=== PATIENT | male | born 1955 | race Two or more races ===

== ENCOUNTER 2021-02-09 10:44 | Outpatient (REF) | payer MEDICARE, SELFPAY ==
[2021-02-09 10:49] LABS: MANUAL DIFF FLAG NO
[2021-02-09 11:16] LABS: Basophils Percent Auto 0.5 % (0-2); Eosinophils Absolute Auto 0.2 X10*3/uL (0.0-0.4); Hematocrit 48.7 % (42-52); Hemoglobin 15.5 g/dl (14.0-18.0); Imm Gran Abs Auto 0.01 X10*3/uL (0.00-0.03); Imm Gran Pct Auto 0.2 % (0.0-0.4); Lymphocytes Absolute Auto 1.8 X10*3/uL (1.2-4.9); Lymphocytes Percent Auto 27.5 % (20-40); Mean Corpuscular HGB Conc 31.8 g/dl (31.0-36.0); Mean Corpuscular Hemoglobin 28.1 pg (27.0-33.0); Mean Corpuscular Volume 88.4 fL (80-98); Mean Platelet Volume 11.6 fL (9.4-12.4); Monocytes Absolute Auto 0.7 X10*3/uL (0.1-1.2); Monocytes Percent Auto 10.1 % (2-11); Neutrophils Absolute Auto 3.8 X10*3/uL (2.0-8.3); Neutrophils Percent Auto 58.7 % (45-73); Platelet Count 195 X10*3/uL (160-400); Red Blood Count 5.51 X10*6/uL (4.60-5.80); White Blood Count 6.4 X10*3/uL (4.8-10.8)
[2021-02-09 11:20] LABS: Glucose Urine UA NEG (NEG); Leukocyte Esterase Urine NEG (NEG); Specific Gravity - Urine 1.025 (1.005-1.025); Urine Blood NEG (NEG); Urine Ketones 5 MG/DL (NEG); Urine Protein TRACE MG/DL (NEG-TRACE)
[2021-02-09 11:21] LABS: Appearance Urine HAZY; Color Urine ORANGE
[2021-02-09 11:27] LABS: RBC Urine 0 /HPF (0); WBC Urine 0 /HPF (0-4)
[2021-02-09 11:28] LABS: Mucus Urine 3+ /LPF; Squamous Epithelial Cell Urine 1+ /LPF
[2021-02-09 12:42] LABS: Alanine Aminotransferase 22 U/L (0-40); Albumin Level 4.3 g/dL (3.5-5.0); Alkaline Phosphatase 56 U/L (39-117); Anion Gap 11 (12-20); Aspartate Amino Transferase 21 U/L (5-37); Bilirubin Total 0.9 mg/dL (0.0-1.0); Blood Urea Nitrogen 20 mg/dL (9-16); Calcium 9.1 mg/dL (8.4-10.2); Carbon Dioxide 29 mmol/L (22-29); Chloride 105 mmol/L (96-108); Cholesterol 162 mg/dL; Estimated Glomerular Filt Rate > 60; Glucose Fasting 93 mg/dL (60-99); HDL Cholesterol 40 mg/dL; LDL Cholesterol Calculated 108 mg/dl; Potassium 3.8 mmol/L (3.3-5.1); Sodium 141 mmol/L (135-145); Total Protein 6.8 g/dL (6.5-8.0); Triglycerides 70 mg/dL
[2021-02-09 12:49] LABS: PSA,Total (Free>4and<10) 0.41 ng/mL (0.00-4.00)
== END 2021-02-09 10:45 | disposition home or self-care (01) ==
LOC: HO.LNP 10:44
PROVIDERS: PCP Internal Medicine; Visit Provider Internal Medicine
DX: Z00.00 Encounter for general adult medical examination without abnormal findings (principal); Z12.5 Encounter for screening for malignant neoplasm of prostate
CPT/HCPCS: 80053; 80061; 81003; 84153; 85025

== ENCOUNTER 2022-01-21 10:49 | Outpatient (REF) | payer MEDICARE, SELFPAY ==
[2022-01-21 10:51] LABS: MANUAL DIFF FLAG NO
[2022-01-21 11:05] LABS: Basophils Absolute Auto 0.1 X10*3/uL (0.0-0.2); Basophils Percent Auto 0.8 % (0-2); Eosinophils Absolute Auto 0.2 X10*3/uL (0.0-0.4); Eosinophils Percent Auto 3.6 % (0-4); Hematocrit 49.5 % (42.0-52.0); Hemoglobin 16.2 g/dl (14.0-18.0); Imm Gran Abs Auto 0.02 X10*3/uL (0.00-0.03); Imm Gran Pct Auto 0.3 % (0.0-0.4); Lymphocytes Percent Auto 30.8 % (20-40); Mean Corpuscular HGB Conc 32.7 g/dl (31.0-36.0); Mean Corpuscular Hemoglobin 27.9 pg (27.0-33.0); Mean Corpuscular Volume 85.3 fL (80.0-98.0); Mean Platelet Volume 11.2 fL (9.4-12.4); Monocytes Absolute Auto 0.6 X10*3/uL (0.1-1.2); Monocytes Percent Auto 8.3 % (2-11); Neutrophils Absolute Auto 3.7 x10*3/uL (2.0-8.3); Neutrophils Percent Auto 56.2 % (45-73); Platelet Count 200 X10*3/uL (160-400); White Blood Count 6.6 X10*3/uL (4.8-10.8)
[2022-01-21 11:14] LABS: Alanine Aminotransferase 31 U/L (0-40); Albumin Level 4.2 g/dL (3.5-5.0); Alkaline Phosphatase 57 U/L (39-117); Anion Gap 13 (12-20); Aspartate Amino Transferase 29 U/L (5-37); Bilirubin Total 0.8 mg/dL (0.0-1.0); Blood Urea Nitrogen 16 mg/dL (9-16); Calcium 9.4 mg/dL (8.4-10.2); Carbon Dioxide 26 mmol/L (22-29); Chloride 105 mmol/L (96-108); Cholesterol 147 mg/dL; Estimated Glomerular Filt Rate > 60; Glucose Fasting 101 mg/dL (60-99); HDL Cholesterol 36 mg/dL; LDL Cholesterol Calculated 100 mg/dl; Potassium 3.7 mmol/L (3.3-5.1); Sodium 140 mmol/L (135-145); Triglycerides 57 mg/dL
[2022-01-21 11:31] LABS: Appearance Urine CLEAR; Color Urine YELLOW; Glucose Urine UA NEG (NEG); Leukocyte Esterase Urine NEG (NEG); Nitrite Urine NEG (NEG); Specific Gravity - Urine 1.015 (1.005-1.025); Urine Blood NEG (NEG); Urine Ketones NEG (NEG); Urine Protein NEG (NEG-TRACE)
[2022-01-21 11:38] LABS: PSA,Total (Free>4and<10) 0.39 ng/mL (0.00-4.00)
== END 2022-01-21 10:50 | disposition home or self-care (01) ==
LOC: HO.LNP 10:49
PROVIDERS: Visit Provider Internal Medicine
DX: Z00.00 Encounter for general adult medical examination without abnormal findings (principal); Z12.5 Encounter for screening for malignant neoplasm of prostate
CPT/HCPCS: 80053; 80061; 81003; 84153; 85025

== ENCOUNTER 2023-01-23 10:59 | Outpatient (REF) | payer MEDICARE, SELFPAY ==
[2023-01-23 11:02] LABS: MANUAL DIFF FLAG NO
[2023-01-23 11:13] LABS: Basophils Percent Auto 0.5 % (0-2); Eosinophils Absolute Auto 0.3 X10*3/uL (0.0-0.4); Hematocrit 49.3 % (42.0-52.0); Hemoglobin 15.9 g/dl (14.0-18.0); Imm Gran Abs Auto 0.02 X10*3/uL (0.00-0.03); Imm Gran Pct Auto 0.3 % (0.0-0.4); Lymphocytes Absolute Auto 2.1 X10*3/uL (1.2-4.9); Lymphocytes Percent Auto 27.7 % (20-40); Mean Corpuscular HGB Conc 32.3 g/dl (31.0-36.0); Mean Corpuscular Hemoglobin 28.5 pg (27.0-33.0); Mean Corpuscular Volume 88.5 fL (80.0-98.0); Mean Platelet Volume 12.1 fL (9.4-12.4); Monocytes Absolute Auto 0.7 X10*3/uL (0.1-1.2); Monocytes Percent Auto 9.2 % (2-11); Neutrophils Absolute Auto 4.4 x10*3/uL (2.0-8.3); Neutrophils Percent Auto 58.3 % (45-73); Platelet Count 190 X10*3/uL (160-400); Red Blood Count 5.57 X10*6/uL (4.60-5.80); Red Cell Distribution Width 13.1 % (11.0-16.0); White Blood Count 7.6 X10*3/uL (4.8-10.8)
[2023-01-23 11:15] LABS: Appearance Urine Clear; Color Urine Dark Yellow; Glucose Urine UA Negative (Negative); Leukocyte Esterase Urine Trace (Negative); Nitrite Urine Negative (Negative); Specific Gravity - Urine 1.025 (1.005-1.025); UMIC TRIGGER UACC YES; Urine Blood Negative (Negative); Urine Ketones Trace mg/dL (Negative); Urine Protein Trace mg/dL (Neg-Trace)
[2023-01-23 11:18] LABS: Bacteria Urine None Seen (None Seen); RBC Urine 0-2 /HPF (0-2); Squamous Epithelial Cell Urine 0-2 /HPF (0-2); WBC Urine 0-5 /HPF (0-5)
[2023-01-23 11:28] LABS: Alanine Aminotransferase 24 U/L (0-40); Albumin Level 4.2 g/dL (3.5-5.0); Alkaline Phosphatase 55 U/L (39-117); Anion Gap 13 (12-20); Aspartate Amino Transferase 23 U/L (5-37); Bilirubin Total 0.8 mg/dL (0.0-1.0); Blood Urea Nitrogen 20 mg/dL (9-16); Carbon Dioxide 26 mmol/L (22-29); Chloride 105 mmol/L (96-108); Cholesterol 136 mg/dL; Estimated Glomerular Filt Rate > 60; Glucose Fasting 101 mg/dL (60-99); HDL Cholesterol 32 mg/dL; LDL Cholesterol Calculated 89 mg/dl; Potassium 3.6 mmol/L (3.3-5.1); Sodium 140 mmol/L (135-145); Total Protein 6.7 g/dL (6.5-8.0); Triglycerides 75 mg/dL
[2023-01-23 11:45] LABS: PSA,Total (Free>4and<10) 0.43 ng/mL (0.00-4.00)
== END 2023-01-23 11:00 | disposition home or self-care (01) ==
LOC: HO.LNP 10:59
PROVIDERS: PCP Internal Medicine; Visit Provider Internal Medicine
DX: Z00.00 Encounter for general adult medical examination without abnormal findings (principal); Z12.5 Encounter for screening for malignant neoplasm of prostate
CPT/HCPCS: 80053; 80061; 81001; 84153; 85025

== ENCOUNTER 2024-02-01 11:01 | Outpatient (REF) | payer MEDICARE, SELFPAY ==
[2024-02-01 11:04] LABS: MANUAL DIFF FLAG NO
[2024-02-01 11:11] LABS: Basophils Percent Auto 0.5 % (0-2); Eosinophils Absolute Auto 0.2 X10*3/uL (0.0-0.4); Eosinophils Percent Auto 3.8 % (0-4); Hematocrit 50.1 % (42.0-52.0); Hemoglobin 16.7 g/dl (14.0-18.0); Imm Gran Abs Auto 0.01 X10*3/uL (0.00-0.03); Imm Gran Pct Auto 0.2 % (0.0-0.4); Lymphocytes Percent Auto 31.2 % (20-40); Mean Corpuscular HGB Conc 33.3 g/dl (31.0-36.0); Mean Corpuscular Hemoglobin 29.2 pg (27.0-33.0); Mean Corpuscular Volume 87.6 fL (80.0-98.0); Mean Platelet Volume 11.4 fL (9.4-12.4); Monocytes Absolute Auto 0.6 X10*3/uL (0.1-1.2); Monocytes Percent Auto 10.1 % (2-11); Neutrophils Absolute Auto 3.4 x10*3/uL (2.0-8.3); Neutrophils Percent Auto 54.2 % (45-73); Platelet Count 180 X10*3/uL (160-400); Red Blood Count 5.72 X10*6/uL (4.60-5.80); Red Cell Distribution Width 13.1 % (11.0-16.0); White Blood Count 6.3 X10*3/uL (4.8-10.8)
[2024-02-01 11:23] LABS: Appearance Urine Clear; Color Urine Yellow; Glucose Urine UA Negative (Negative); Leukocyte Esterase Urine Negative (Negative); Nitrite Urine Negative (Negative); PH 8.5 (5.0-9.0); Specific Gravity - Urine 1.015 (1.005-1.025); Urine Blood Negative (Negative); Urine Ketones Negative (Negative); Urine Protein Negative (Neg-Trace)
[2024-02-01 11:26] LABS: Alanine Aminotransferase 28 U/L (0-40); Albumin Level 4.2 g/dL (3.5-5.0); Alkaline Phosphatase 51 U/L (39-117); Anion Gap 10 (12-20); Aspartate Amino Transferase 29 U/L (5-37); Bilirubin Total 0.7 mg/dL (0.0-1.0); Blood Urea Nitrogen 17 mg/dL (9-16); Calcium 9.2 mg/dL (8.4-10.2); Carbon Dioxide 30 mmol/L (22-29); Chloride 105 mmol/L (96-108); Cholesterol 146 mg/dL (<200); Estimated Glomerular Filt Rate > 60; Glucose Fasting 91 mg/dL (60-99); HDL Cholesterol 35 mg/dL (>40); LDL Cholesterol Calculated 98 mg/dL (<100); Potassium 3.8 mmol/L (3.3-5.1); Sodium 141 mmol/L (135-145); Total Protein 6.8 g/dL (6.5-8.0); Triglycerides 65 mg/dL (<150)
[2024-02-01 11:27] LABS: Bacteria Urine None Seen (None Seen); Hyaline Casts Urine 0-2 /LPF (0-2); RBC Urine 0-2 /HPF (0-2); Squamous Epithelial Cell Urine 0-2 /HPF (0-2); WBC Urine 0-5 /HPF (0-5)
[2024-02-01 11:47] LABS: PSA,Total (Free>4and<10) 0.46 ng/mL (0.00-4.00)
== END 2024-02-01 11:02 | disposition home or self-care (01) ==
LOC: HO.LNP 11:01
PROVIDERS: Visit Provider Internal Medicine
DX: Z00.00 Encounter for general adult medical examination without abnormal findings (principal); Z12.5 Encounter for screening for malignant neoplasm of prostate
CPT/HCPCS: 80053; 80061; 81001; 84153; 85025

== ENCOUNTER 2024-02-08 13:50 | Outpatient (REF) | payer MEDICARE, SELFPAY ==
[2024-02-08 14:41] LABS: Vitamin D 25-OH Total 37.9 ng/mL (>30)
== END 2024-02-08 13:51 | disposition home or self-care (01) ==
LOC: HO.LNP 13:50
PROVIDERS: Visit Provider Internal Medicine
DX: E55.9 Vitamin D deficiency, unspecified (principal)
CPT/HCPCS: 82306

== ENCOUNTER 2025-02-03 10:24 | Outpatient (REF) | payer MEDICARE, SELFPAY ==
[2025-02-03 10:28] LABS: MANUAL DIFF FLAG NO
[2025-02-03 10:34] LABS: Basophils Percent Auto 0.6 % (0-2); Eosinophils Absolute Auto 0.3 X10*3/uL (0.0-0.4); Eosinophils Percent Auto 3.9 % (0-4); Hemoglobin 16.7 g/dl (14.0-18.0); Imm Gran Abs Auto 0.02 X10*3/uL (0.00-0.03); Imm Gran Pct Auto 0.3 % (0.0-0.4); Lymphocytes Absolute Auto 2.4 X10*3/uL (1.2-4.9); Mean Corpuscular HGB Conc 33.4 g/dl (31.0-36.0); Mean Corpuscular Volume 86.8 fL (80.0-98.0); Mean Platelet Volume 11.1 fL (9.4-12.4); Monocytes Absolute Auto 0.6 X10*3/uL (0.1-1.2); Monocytes Percent Auto 9.2 % (2-11); Neutrophils Absolute Auto 3.6 x10*3/uL (2.0-8.3); Platelet Count 184 X10*3/uL (160-400); Red Blood Count 5.76 X10*6/uL (4.60-5.80); Red Cell Distribution Width 12.8 % (11.0-16.0)
[2025-02-03 10:56] LABS: Appearance Urine Clear; Color Urine Yellow; Glucose Urine UA Negative (Negative); Leukocyte Esterase Urine Negative (Negative); Nitrite Urine Negative (Negative); Specific Gravity - Urine 1.015 (1.005-1.025); Urine Blood Negative (Negative); Urine Ketones Negative (Negative); Urine Protein Negative (Neg-Trace)
[2025-02-03 11:01] LABS: Bacteria Urine None Seen (None Seen); Hyaline Casts Urine 0-2 /LPF (0-2); RBC Urine 0-2 /HPF (0-2); Squamous Epithelial Cell Urine 0-2 /HPF (0-2); WBC Urine 0-5 /HPF (0-5)
[2025-02-03 11:05] LABS: PSA,Total (Free>4and<10) 0.45 ng/mL (0.00-4.00)
[2025-02-03 11:19] LABS: Alanine Aminotransferase 30 U/L (0-40); Albumin Level 4.4 g/dL (3.5-5.0); Alkaline Phosphatase 47 U/L (39-117); Anion Gap 13 (12-20); Aspartate Amino Transferase 35 U/L (5-37); Bilirubin Total 0.7 mg/dL (0.0-1.0); Blood Urea Nitrogen 17 mg/dL (9-16); Calcium 9.1 mg/dL (8.4-10.2); Carbon Dioxide 27 mmol/L (22-29); Chloride 105 mmol/L (96-108); Cholesterol 141 mg/dL (<200); Estimated Glomerular Filt Rate > 60; Glucose Fasting 96 mg/dL (60-99); HDL Cholesterol 34 mg/dL (>40); LDL Cholesterol Calculated 94 mg/dL (<100); Potassium 3.6 mmol/L (3.3-5.1); Sodium 141 mmol/L (135-145); Total Protein 6.8 g/dL (6.5-8.0); Triglycerides 68 mg/dL (<150); Vitamin D 25-OH Total 61.5 ng/mL (>30)
--- OUTSIDE RECORDS SUMMARY | 2025-02-03 11:38 | XMS_ITS | Patient Health Record ---
Author Organization Dewayne Galvan MD Address [address] [place], [place] [phone] Care Team Providers Care Reading Tutor Name Role Phone Dewayne Galvan Primary Care Provider [phone] Allergies No Known Allergies Results Component Value Reference Range Notes Occult Blood, Stool, Guaiac Reviewed date:02/08/2024 01:22:56 PM Interpretation:Negative Performing Lab: Notes/Report: Negative Occult Blood, Stool, Guaiac Neg Vitamin D 25-OH Total Reviewed date:02/09/2024 12:23:16 PM Interpretation: Performing Lab:[facility], [address] [place] [address] Notes/Report: Vitamin D 25-OH Total 37.9 >30 [...] confirmed with another method such as LC-MS/MS. Complete Blood Count Auto Di ff (Not yet reviewed by provider) Interpretation: Performing Lab:[facility], [address] [place] [phone] Notes/Report: White Blood Count 7.0 4.8-10.8 X10*3/uL [...] NRBC Abs Auto 0.000 0.0-0.012 X10*3/uL Comprehensive [place]. Panel Fa st (Not yet reviewed by provider) Interpretation: Performing Lab:[facility], [address] [place] [phone] Notes/Report: Sodium 141 135-145 mmol/L Potassium 3.6 [...] Alkaline Phosphatase 47 39-117 U/L Lipid Panel (Not yet reviewe d by provider) Interpretation: Performing Lab:[address] [address] Notes/Report: Triglycerides 68 <150 mg/dL Desirable Triglyceride: [...] in patients with liver disease. PSA,Total (Free>4and<10) (No t yet reviewed by provider) Interpretation: Performing Lab:[address] [address] Notes/Report: PSA,Total (Free>4and<10) 0.45 0.00-4.00 ng/mL A [...] Microparticle Immunoassay (CMIA) Vitamin D 25-OH Total (Not y et reviewed by provider) Interpretation: Performing Lab:[address] [address] Notes/Report: Vitamin D 25-OH Total 61.5 >30 [...] as LC-MS/MS. UA ClnCatch+Micro w/rflx Cul t (Not yet reviewed by provider) Interpretation: Performing Lab:[address] [address] Notes/Report: [id number] Urine, Clean Catch Color Urine Yellow Appearance Urine Clear PH 7.0 5.0-9.0 Glucose Urine UA Negative Negative mg/dL Urine Blood Negative Negative Specific [place]ola - Urine 1.015 1.005-1.025 Urine Protein Negative Neg-Trace mg/dL Urine Ketones Negative Negative mg/dL Nitrite Urine Negative Negative Leukocyte Esterase Urine Negative Negative RBC Urine 0-2 0-2 /HPF WBC Urine 0-5 0-5 /HPF Squamous Epithelial Cell Urine 0-2 0-2 /HPF Bacteria Urine None Seen None Seen Hyaline Casts Urine 0-2 0-2 /LPF Reason For Referral No Information Medications Medication SIG (Take, Route, Frequency, Duration) Notes Start Date End Date Status Vitamin D 25 MCG (1000 UT) 1 tablet Orally Once a day for 30 day(s) Not-Taking Immunizations Vaccine Route Administration Date Status Comme nts SARS-COV-2 Moderna Unknown 10/17/2020 Administered SARS-COV-2 Moderna Unknown 11/14/2020 Administered Fluarix Quadrivalent Unknown 05/02/2019 Refused PPSV23 (Pnemovax) Unknown 05/06/2019 Refused Fluarix Quadrivalent Unknown 07/23/2020 Refused PPSV23 (Pnemovax) Unknown 01/27/2022 Refused Fluarix Quadrivalent Unknown 08/19/2022 Refused Social History Tobacco Use: Social History Observation [...] Problem Status W/U Status Risk Notes Problem 46808792 Vitamin D defici ency (E55.9) Active confirmed Problem 138853928 Bursitis of left shoulder (M75.52) Active confirmed Problem 350643713 Lumbar disc dise ase (M51.9) Active confirmed Problem 01870667 Dysthymia (F34.1) Active confirmed Problem 2009312878870 Bilateral tinnit us (H93.13) Active confirmed Problem 91400901 Neurofibromatosi s (Q85.00) Active confirmed Vital Signs Blood pressure diastolic 70 mm Hg 02/08/2024 warner ght is down 3 pounds since 02-06-23 Height 66.5 in 02/08/2024 weight is down 3 pounds since 02-06-23 Blood pressure systolic 112 mm Hg 02/08/2024 weig ht is down 3 pounds since 02-06-23 Weight 198 lbs 02/08/2024 weight is down 3 pounds since 02-06-23 BMI 31.48 kg/m2 02/08/2024 weight is down 3 pounds since 02-06-23 Encounters Encounter Location Date Provider Diagnosis Dewayne Galvan MD [address] [place], [place] [phone] 02/03/2025 Dewayne Galvan Blood tests for routine general physical examination Z00.00 and Vitamin D deficiency E55.9 Dewayne Galvan MD [address] [place], [place] [phone] 02/08/2024 Dewayne Galvan Bilateral tinnitus H93.13 ; Annual physical exam Z00.00 ; Vitamin D deficiency E55.9 ; Dysthymia F34.1 ; Colon cancer screening Z12.11 and Negative depression screening Z13.31 Assessments Encounter Date Diagnosis (ICD Code) Assessment Notes Treatment Notes Treatment Clinical Notes Section Notes 02/03/2025 Blood tests for routine general physical examination (ICD-10 - Z00.00) 02/08/2024 Bilateral tinnitus (ICD-10 - H93.13) will observe, nothing to do 02/08/2024 Annual physical exam (ICD-10 - Z00.00) labs reviewed and discussed with patient 02/03/2025 Vitamin D deficiency (ICD-10 - E55.9) 02/08/2024 Vitamin D deficiency (ICD-10 - E55.9) stable, will continue to monitor 02/08/2024 Dysthymia (ICD-10 - F34.1) doing well, will continue current regiment 02/08/2024 Colon cancer screening (ICD-10 - Z12.11) guaiac negative 02/08/2024 Negative depression screening (ICD-10 - Z13.31) negative screen Plan Of Treatment Pending Test Test Name Order Date Electrocardiogram (EKG) 05/02/2019 Complete Blood Count Auto Diff 5 Comprehensive [place]. Panel Fast 5 Lipid Panel 02/03/2025 PSA,Total (Free>4and<10) 02/03/2025 Vitamin D 25-OH Total 02/03/2025 UA ClnCatch+Micro w/rflx Cult 02/03/2025 Next Appt Details Provider Name:Dewayne kidd, 02/10/2025 09:30:00 AM, [address], [address], [place], [place], [phone], Insurance Providers Payer Name Payer Address Payer Phone Subscriber Number Group Number Insured Name Patient Relationship to Insured Coverage Start Date Coverage End Date [employer] [facility] [address] [facility] [place], [place] [phone] [id number] Bart Maldonado Self - patient is the insured Medical (General) History Medical History History ICD Code 09/23/[address] Harjeet mccarty 5 years tubular adenoma
== END 2025-02-03 10:25 | disposition home or self-care (01) ==
LOC: HO.LNP 10:24
PROVIDERS: Visit Provider Internal Medicine
DX: Z00.00 Encounter for general adult medical examination without abnormal findings (principal); E55.9 Vitamin D deficiency, unspecified
CPT/HCPCS: 80053; 80061; 81001; 82306; 84153; 85025

== ENCOUNTER 2025-06-16 08:10 | Day surgery (SDC) | payer MEDICARE, SELFPAY ==
--- OUTSIDE RECORDS SUMMARY | 2024-02-01 03:45 | XMS_ITS ---
Author Organization Dewayne Galvan MD Address [address] [place], [place] [phone] Care Team Providers Care Rehab Spec Name Role Phone Dewayne Galvan Primary Care Provider [phone] Results Component Value Reference Range Notes Complete Blood Count Auto Di ff Reviewed date:02/01/2024 05:21:57 PM Interpretation: Performing Lab:[facility], [address] [place] [phone] Notes/Report: White Blood Count 6.3 4.8-10.8 X10*3/uL [...] Microscopic Reviewed date:02/01/2024 05:14:04 PM Interpretation: Performing Lab:[facility], [address] [place] [phone] Notes/Report: Color Urine Yellow Appearance Urine Clear PH 8.5 5.0-9.0 Glucose Urine UA Negative Negative mg/dL Urine Blood Negative Negative Specific [place] - Urine 1.015 1.005-1.025 Urine Protein Negative Neg-Trace mg/dL Urine Ketones Negative Negative mg/dL Nitrite Urine Negative Negative Leukocyte Esterase Urine Negative Negative RBC Urine 0-2 0-2 /HPF WBC Urine 0-5 0-5 /HPF Squamous Epithelial Cell Urine 0-2 0-2 /HPF Bacteria Urine None Seen None Seen Hyaline Casts Urine 0-2 0-2 /LPF Comprehensive [place]. Panel Fa Reviewed date:02/01/2024 05:07:02 PM Interpretation: Performing Lab:[facility], [address] [place] [phone] Notes/Report: Sodium 141 135-145 mmol/L Potassium 3.8 3.3-5.1 mmol/L Chloride 105 96-108 mmol/L Carbon Dioxide 30 22-29 mmol/L Anion Gap 10 12-20 Blood Urea Nitrogen 17 9-16 mg/dL Creatinine 0.85 0.5-1.4 mg/dL Estimated Glomerular Filt Rate > 60 NOTE: For -Palauan individuals, multiply the result by 1.210. Chronic [...] Panel Reviewed date:02/01/2024 05:06:40 PM Interpretation: Performing Lab:[facility], [address] [place] [phone] Notes/Report: Triglycerides 65 <150 mg/dL Desirable Triglyceride: [...] (Free>4and<10) Reviewed date:02/01/2024 05:12:19 PM Interpretation: Performing Lab:[facility], [address] [place] [phone] Notes/Report: PSA,Total (Free>4and<10) 0.46 0.00-4.00 ng/mL A [...] Location Date Provider Diagnosis Dewayne Galvan MD [address] [place] [address] [place] [phone] 02/01/2024 Dewayne Galvan Blood tests for routine general physical examination Z00.00 Assessments Encounter Date Diagnosis (ICD Code) Assessment Notes Treatment Notes Treatment Clinical Notes Section Notes 02/01/2024 Blood tests for routine general physical examination (ICD-10 - Z00.00) Plan Of Treatment Next Appt Details Provider Name:Dewayne kidd, 02/10/2026 07:45:00 AM, [address] [place] [address], Suite [facility], [place], [place], [phone], Provider Name:Dewayne kidd, 02/17/2026 09:30:00 AM, [address] [place] [address], [place] [address], [place], [place], [phone], Progress Notes * ALCONGBart STEVENDOB: (69 yo M)Acc No.[id number]:02/01/2024 Progress Note Patient: Bart MONAHAN Provider: La Nena Galvan MD :1955 A ge:68 Y S ex:Male Date:02/01/2024 Address:[address] [place], [place] [phone] Subjective: * Chief Complaints: * 1 . [...] 0 02/01/2024 Generated for Kem gutierrez/Rob/eTransmitting on: 1 01:58 PM EDT
--- OUTSIDE RECORDS SUMMARY | 2024-02-08 05:30 | XMS_ITS ---
Author Organization Dewayne Galvan MD Address [address] [place], [place] [phone] Care Team Providers Care Mason Liner Name Role Phone Dewayne Galvan Primary Care Provider [phone] Allergies No Known Allergies Results Component Value Reference Range Notes Occult Blood, Stool, Guaiac Reviewed date:02/08/2024 01:22:56 PM Interpretation:Negative Performing Lab: Notes/Report: Negative Occult Blood, Stool, Guaiac Neg Vitamin D 25-OH Total Reviewed date:02/09/2024 12:23:16 PM Interpretation: Performing Lab:[facility], [address] [place] [phone] Notes/Report: Vitamin D 25-OH Total 37.9 >30 [...] Problem Status W/U Status Risk Notes Problem [id number] Bilateral tinnitus (H93.13) Active confirmed Problem [id number] Vitamin D deficiency (E55.9) Active confirmed Vital Signs Blood pressure systolic 112 mm Hg 02/08/20 24 Blood pressure diastolic 70 mm Hg 024 Height 66.5 in 02/08/2024 Weight 198 lbs 02/08/2024 BMI 31.48 kg/m2 02/08/2024 weight is down 3 pounds [facility] 02-06-23 Encounters Encounter Location Date Provider Diagnosis Dewayne Galvan MD [address] [facility] [address] [place], [place] [phone] 02/08/2024 Dewayne Galvan Bilateral tinnitus H93.13 ; [...] 07:45:00 AM, [address], [address], [place], [place], [phone], Provider Name:Dewayne Ortiz ier, 02/17/2026 09:30:00 AM, [address], [address], [place], [place], [phone], Progress Notes * Bart KCDOB: (68 yo M)Acc No.[id number]:02/08/2024 Progress Notes Patient: Britney Pam garciater Provider: La Nena Galvan MD :1955 A ge:68 Y S ex:Male Date:02/08/2024 Address:[address] [place], [place] [id number] Subjective: * Chief Complaints: * A NNUAL [...] mg/dL Urine Blood Negative Negative - Specific [place] - Urine 1.015 1.005-1.025 - Urine Protein Negative Neg-Trace - mg/dL Urine Ketones Negative Negative - mg/dL Nitrite Urine Negative Negative - Leukocyte Esterase Urine Negative Negative - WBC Urine 0-5 0-5 - /HPF Squamous Epithelial Cell Urine 0-2 0-2 - /HP F Bacteria Urine None Seen None Seen - Hyaline Casts Urine 0-2 0-2 - /LPF L ab:Comprehensive [place]. Panel Fast (Order Date - 02/01/2024) (Collection [...] screen.?? * Procedure Codes: 3 6415 VENIPUNCT, ROUTINE*38395 TEST FOR BLOOD, FECES * Preventive Medicine: Counseling: C are goal follow-up plan: C ounseling for abnormal BMI provided?Yes, A gisselle Normal BMI Follow-up G iving encouragement to exercise. * Follow Up: 1 Year * * Sign off status: Completed true * Provider: La Nena Galvan MD Date: 0 02/08/2024 Generated for Kem gutierrez/Rob/[place] on: 1 01:58 PM EDT History and Physical Notes * HPI (History [...] Score: 0 Interpretation and Intervention Depression Bernie dylan Findings: Negative Follow-Up for Depression: : review [...]
--- OUTSIDE RECORDS SUMMARY | 2025-02-03 03:15 | XMS_ITS ---
Author Organization Dewayne Galvan MD Address [address] [place], [place] [phone] Care Team Providers Care Cloth Piecer Name Role Phone Dewayne Galvan Primary Care Provider [phone] Results Component Value Reference Range Notes Complete Blood Count Auto Di ff Reviewed date:02/03/2025 12:36:45 PM Interpretation: Performing Lab:[facility], [address] [place] [phone] Notes/Report: White Blood Count 7.0 4.8-10.8 X10*3/uL [...] NRBC Abs Auto 0.000 0.0-0.012 X10*3/uL Comprehensive [place]. Panel Fa st Reviewed date:02/03/2025 12:37:46 PM Interpretation: Performing Lab:[facility], [address] [place] [phone] Notes/Report: Sodium 141 135-145 mmol/L Potassium 3.6 [...] Panel Reviewed date:02/03/2025 12:36:53 PM Interpretation: Performing Lab:[facility], [address] [place] [phone] Notes/Report: Triglycerides 68 <150 mg/dL Desirable Triglyceride: [...] (Free>4and<10) Reviewed date:02/03/2025 12:36:25 PM Interpretation: Performing Lab:[facility], [address] [place] [phone] Notes/Report: PSA,Total (Free>4and<10) 0.45 0.00-4.00 ng/mL A [...] Total Reviewed date:02/03/2025 12:37:20 PM Interpretation: Performing Lab:[facility], [address] [place] [phone] Notes/Report: Vitamin D 25-OH Total 61.5 >30 [...] t Reviewed date:02/04/2025 05:30:34 PM Interpretation: Performing Lab:[facility], [address] [place] [phone] Notes/Report: [id number] 0715 Urine, Clean Catch Color Urine Yellow Appearance Urine Clear PH 7.0 5.0-9.0 Glucose Urine UA Negative Negative mg/dL Urine Blood Negative Negative Specific [place] - Urine 1.015 1.005-1.025 Urine Protein Negative [...] Date Provider Diagnosis Dewayne Galvan MD [address] [place], [place] [phone] 02/03/2025 Dewayne Galvan Blood tests for routine general physical examination Z00.00 and Vitamin D deficiency E55.9 Assessments Encounter Date Diagnosis (ICD Code) Assessment Notes Treatment Notes Treatment Clinical Notes Section Notes 02/03/2025 Blood tests for routine general physical examination (ICD-10 - Z00.00) 02/03/2025 Vitamin D deficiency (ICD-10 - E55.9) Plan Of Treatment Next Appt Details Provider Name:Dewayne kidd, 02/10/2026 07:45:00 AM, [address], [address], [place], [place], [phone], Provider Name:Dewayne Ortiz ier, 02/17/2026 09:30:00 AM, [address], [address], [place], [place], [phone], Progress Notes * Bart KCDOB: 4 (69 yo M)Acc No.[id number]:02/03/2025 Progress Note Patient: Bart MONAHAN Provider: La Nena Galvan MD :1955 A ge:69 Y S ex:Male Date:02/03/2025 Address:[address] [place], [place] [phone] Subjective: * Chief Complaints: * 1 . Yearly fasting labs. * Medical History: Objective: * Vitals: Assessment: * Assessment: 1. B lood tests for routine general physical examination - Z00.00 (Primary) 2 .?Vitamin D deficiency - E55.9 Plan: * Treatment: 2. V itamin D deficiency L AB: Complete Blood Count Auto Diff (Collection Date & Time - 02/03/2025 07:15 AM) L AB: Comprehensive [place]. Panel Fast (Collection Date & Time - [...] MD Date: 0 02/03/2025 Generated for Kem gutierrez/Rob/eTransmitting on: 1 01:58 PM EDT
--- OUTSIDE RECORDS SUMMARY | 2025-02-10 05:30 | XMS_ITS ---
Author Organization Dewayne Galvan MD Address [address] [place], [place] [phone] Care Team Providers Care Temporary Data Entry Clerk Name Role Phone Dewayne Galvan Primary Care Provider [phone] Allergies No Known Allergies Results Component [...] W/U Status Risk Notes Problem Tubular adenoma (387474804) Tubular adenoma (D36.9) Active confirmed Vital Signs Blood pressure systolic 112 mm Hg 02/11/20 25 Blood pressure diastolic 80 mm Hg 025 Height 66.5 in 02/10/2025 Weight 203 lbs 02/10/2025 BMI 32.27 kg/m2 02/10/2025 weight is up 5 pounds since 02-08-24 Encounters Encounter Location Date Provider Diagnosis Dewayne Galvan MD [address] [place] [address] [place] [phone] 02/10/2025 Dewayne Galvan Vitamin D deficiency E55.9 [...] 07:45:00 AM, [address], [address], [place], [place], [phone], Provider Name:Dewayne Ortiz ier, 02/17/2026 09:30:00 AM, [address], [address], [place], [place], [phone], Progress Notes * Bart KCDOB: (69 yo M)Acc No.[id number]:02/10/2025 Progress Notes Patient: Bart MONAHAN Provider: La Nena Galvan MD :1955 A ge:69 Y S ex:Male Date:02/10/2025 Address:[address] [place], [place] [phone] Subjective: * Chief Complaints: * A nnual [...] Auto 0.000 0.0-0.012 - X10*3/uL L ab:Comprehensive [place]. Panel Fast (Order Date - 02/03/2025) (Collection [...] 02/10/2025 Generated for Kem gutierrez/Rob/eTleroysmitting on: 1 01:58 PM EDT History and [...]
[2025-06-12 14:05] VITALS: BMI 31.1
--- OUTSIDE RECORDS SUMMARY | 2025-06-13 13:58 | XMS_ITS | Patient Health Record ---
Author Organization Dewayne Galvan MD Address [address] [place], [place] [id number] Care Team Providers Care Pick Up Attendant Name Role Phone Dewayne Galvan Primary Care Provider Allergies No Known Allergies Results Component Value Reference Range Notes Complete Blood Count Auto Di ff Reviewed date:02/03/2025 12:36:45 PM Interpretation: Performing Lab:[facility], [address] [place] [phone] Notes/Report: White Blood Count 7.0 4.8-10.8 X10*3/uL [...] NRBC Abs Auto 0.000 0.0-0.012 X10*3/uL Comprehensive [place]. Panel Fa st Reviewed date:02/03/2025 12:37:46 PM Interpretation: Performing Lab:[facility], [address] [place] [phone] Notes/Report: Sodium 141 135-145 mmol/L Potassium 3.6 [...] Panel Reviewed date:02/03/2025 12:36:53 PM Interpretation: Performing Lab:[facility], [address] [place] [phone] Notes/Report: Triglycerides 68 <150 mg/dL Desirable Triglyceride: [...] (Free>4and<10) Reviewed date:02/03/2025 12:36:25 PM Interpretation: Performing Lab:[facility], [address] [place] [phone] Notes/Report: PSA,Total (Free>4and<10) 0.45 0.00-4.00 ng/mL A [...] Total Reviewed date:02/03/2025 12:37:20 PM Interpretation: Performing Lab:[facility], [address] [place] [phone] Notes/Report: Vitamin D 25-OH Total 61.5 >30 [...] t Reviewed date:02/04/2025 05:30:34 PM Interpretation: Performing Lab:[facility], [address] [place] [phone] Notes/Report: [id number] Urine, Clean Catch Color Urine Yellow Appearance Urine Clear PH 7.0 5.0-9.0 Glucose Urine UA Negative Negative mg/dL Urine Blood Negative Negative Specific [place] - Urine 1.015 1.005-1.025 Urine Protein Negative Neg-Trace mg/dL Urine Ketones Negative Negative mg/dL Nitrite Urine Negative Negative Leukocyte Esterase Urine Negative Negative RBC Urine 0-2 0-2 /HPF WBC Urine 0-5 0-5 /HPF Squamous Epithelial Cell Urine 0-2 0-2 /HPF Bacteria Urine None Seen None Seen Hyaline Casts Urine 0-2 0-2 /LPF Occult Blood, Stool, Guaiac Reviewed date:02/10/2025 10:19:41 [...] PM > was told still being reviewed, SharBetty 03/04/2025 10:44:10 AM >patient is aware of appt Referral Priority Routine Referral Appointment Date 03/05/2025 Medications Medication SIG (Take, Route, Frequency, Duration) [...] W/U Status Risk Notes Problem Tubular adenoma (609688257) Tubular adenoma (D36.9) Active confirmed Problem 73265049 Vitamin D defici ency (E55.9) Active confirmed Problem 903476127 Bursitis of left shoulder (M75.52) Active confirmed Problem 653521635 Lumbar disc dise ase (M51.9) Active confirmed Problem 09840032 Dysthymia (F34.1) Active confirmed Problem 0809711941225 Bilateral tinnit us (H93.13) Active confirmed Problem 02161334 Neurofibromatosi s (Q85.00) Active confirmed Vital Signs Blood pressure diastolic 80 mm Hg 02/10/2025 warner ght is up 5 pounds since 02-08-24 Height 66.5 in 02/10/2025 weight is up 5 pounds since 02-08-24 Blood pressure systolic 112 mm Hg 02/10/2025 weig ht is up 5 pounds since 02-08-24 Weight 203 lbs 02/10/2025 weight is up 5 pounds since 02-08-24 BMI 32.27 kg/m2 02/10/2025 weight is up 5 pounds since 02-08-24 Encounters Encounter Location Date Provider Diagnosis Dewayne Galvan MD [address] [place] [address] Drive [address] [place], [place] [phone] 02/03/2025 Dewayne Galvan Blood tests for routine general physical examination Z00.00 and Vitamin D deficiency E55.9 Dewayne Galvan MD [address] [place], [place] [phone] 02/10/2025 Dewayne Galvan Vitamin D deficiency E55.9 ; Annual physical exam Z00.00 ; Tubular adenoma D36.9 ; Rectal abnormality K62.9 ; Dysthymia F34.1 ; Colon cancer screening Z12.11 and Depression screening Z13.31 Assessments Encounter Date Diagnosis (ICD Code) Assessment Notes Treatment Notes Treatment Clinical Notes Section Notes 02/03/2025 Blood tests for routine general physical examination (ICD-10 - Z00.00) 02/10/2025 Vitamin D deficiency (ICD-10 - E55.9) decrease to 1000 units per day 02/10/2025 Annual physical exam (ICD-10 - Z00.00) labs reviewed and discussed with patent 02/03/2025 Vitamin D deficiency (ICD-10 - E55.9) 02/10/2025 Tubular adenoma (ICD-10 - D36.9) due [...] Test Name Order Date Electrocardiogram (EKG) 05/02/2019 Next Appt Details Provider Name:Dewayne kidd, 02/10/2026 07:45:00 AM, [address], [address], [place], [place], [phone], Provider Name:Dewayne kidd, 02/17/2026 09:30:00 AM, [address], [address], [place], [place], [phone], Insurance Providers Payer Name Payer Address Payer Phone Subscriber Number Group Number Insured Name Patient Relationship to Insured Coverage Start Date Coverage End Date [employer] [facility] [address] [place] [phone] [id number] Bart Maldonado Self - patient is the insured Medical (General) History Medical History History ICD Code 09/23/[address] Harjeet mccarty 5 years tubular adenoma
--- OUTSIDE RECORDS SUMMARY | 2025-06-13 13:58 | XMS_ITS | Patient Health Record ---
Author Organization [facility] Address [address] [place] [address] Care Team Providers Care Family Court Registrar Name Role Phone Dewayne Galvan MD Primary Care Provider Cecil Anderson Unavailable [phone] Allergies No Known Allergies Reason For Referral No Information Medications Medication SIG (Take, Route, Frequency, Duration) Notes Start Date End Date Status Aspirin 81 81 MG 1 tablet Orally Once a day; Duration: 30 day(s) 03/05/2025 Active Vitamin D 50 MCG (1999) 1 tablet Oral ly Once a day; Duration: 30 day(s) 03/05/2025 Active Immunizations Vaccine Route Administration Date Status Comme nts Influenza Unknown 03/05/2025 Refused Social History Tobacco Use: Social History Observation Description Date Details (start date - stop date) Never Smoker NA - NA Tobacco Use/Smoking Question Answer Notes Patient is a nonsmoker AUDIT-C (Standard) Question Answer Notes Did you have a drink contain ing alcohol in the past year? Yes How often did you have a dri nk containing alcohol in the past year? Daily or almost daily (4 points) How many drinks did you have on a typical day when you were drinking in the past year? 1 or 2 drinks (0 point) How often did you have six o r more drinks on one occasion in the past year? Never (0 point) Points 4 Interpretation Positive Section Notes: Nonsmoker; no sig. alcohol Nonsmoker; no sig. alcohol Problems Problem Type SNOMED Code ICD Code Onset Dates Problem Status W/U Status Risk Notes Problem Screening for malignant neoplasm of colon (635155423) Encounter for screening for malignant neoplasm of colon (Z12.11) Active confirmed Problem Long-term current use of antiplatelet drug (302932502653034) prison (current) use of aspirin (Z79.82) Active confirmed Problem Preprocedural examination (560249474297236) Preprocedural examination (Z01.818) Active confirmed Problem Family History of Cancer of Colon (Situation) (631647846) Family history of colon cancer (Z80.0) Active confirmed Problem Family history of malignant neoplasm of gastrointestinal tract (925963429) Family history of colon cancer in father (Z80.0) Active confirmed Problem History of adenomatous polyp of colon (189751559) History of adenomatous polyp of colon (Z86.0101) Active confirmed Vital Signs Temperature 97.5 degrees Fahrenheit 03/05/2025 Blood pressure diastolic 01 mm Hg 03/05/2025 Height 68 in 03/05/2025 Blood pressure systolic 001 mm Hg 03/05/2025 Weight 204.4 lbs 03/05/2025 BMI 31.08 kg/m2 03/05/2025 Procedures Procedure Date Ordered Date Performed Result Body Sit e COLONOSCOPY 03/05/2025 N/A Encounters Encounter Location Date Provider Diagnosis [facility] [address] [place] [address] 03/05/2025 Cecil Cosby History of adenomato us polyp of colon Z86.0101 ; Preprocedural examination Z01.818 ; Colon cancer screening Z12.11 ; Family history of colon cancer in father Z80.0 and prison (current) use of aspirin Z79.82 Assessments Encounter Date Diagnosis (ICD Code) Assessment Notes Treatment Notes Treatment Clinical Notes Section Notes 03/05/2025 Preprocedural examination (ICD-10 - Z01.818) Overall, Bart appears quite well. He is not having any new or worrisome GI complaints. I did not feel a definitive abnormality on his digital rectal exam today. He does have a somewhat tight anal sphincter which made the exam somewhat limited. Nonetheless, given his history of a tubular adenoma of the colon, his significant family history of his father having had colon cancer at a relatively young age, and Bart's last colonoscopy being over 5 years ago, I did advise him that he needs a follow-up colonoscopy for screening purposes regardless of the questionable rectal exam. We did review the rationale for that in regard to colon cancer prevention. Full consent has been obtained for this, including risk of bleeding and perforation. The procedure will be done with monitored anesthesia care. He was advised to stop aspirin a full week before the procedure. Bart was comfortable with this plan. Thank you again for allowing me to participate in Bart's care. I shall continue to keep you advised of his progress. 03/05/2025 History of adenomatous polyp of colon (ICD-10 - Z86.0101) Overall, Bart appears quite well. He is not having any new or worrisome GI complaints. I did not feel a definitive abnormality on his digital rectal exam today. He does have a somewhat tight anal sphincter which made the exam somewhat limited. Nonetheless, given his history of a tubular adenoma of the colon, his significant family history of his father having had colon cancer at a relatively young age, and Bart's last colonoscopy being over 5 years ago, I did advise him that he needs a follow-up colonoscopy for screening purposes regardless of the questionable rectal exam. We did review the rationale for that in regard to colon cancer prevention. Full consent has been obtained for this, including risk of bleeding and perforation. The procedure will be done with monitored anesthesia care. He was advised to stop aspirin a full week before the procedure. Bart was comfortable with this plan. Thank you again for allowing me to participate in Bart's care. I shall continue to keep you advised of his progress. 03/05/2025 Colon cancer screening (ICD-10 - Z12.11) Overall, Bart appears quite well. He is not having any new or worrisome GI complaints. I did not feel a definitive abnormality on his digital rectal exam today. He does have a somewhat tight anal sphincter which made the exam somewhat limited. Nonetheless, given his history of a tubular adenoma of the colon, his significant family history of his father having had colon cancer at a relatively young age, and Bart's last colonoscopy being over 5 years ago, I did advise him that he needs a follow-up colonoscopy for screening purposes regardless of the questionable rectal exam. We did review the rationale for that in regard to colon cancer prevention. Full consent has been obtained for this, including risk of bleeding and perforation. The procedure will be done with monitored anesthesia care. He was advised to stop aspirin a full week before the procedure. Bart was comfortable with this plan. Thank you again for allowing me to participate in Bart's care. I shall continue to keep you advised of his progress. 03/05/2025 Family history of colon cancer in father (ICD-10 - Z80.0) Overall, Bart appears quite well. He is not having any new or worrisome GI complaints. I did not feel a definitive abnormality on his digital rectal exam today. He does have a somewhat tight anal sphincter which made the exam somewhat limited. Nonetheless, given his history of a tubular adenoma of the colon, his significant family history of his father having had colon cancer at a relatively young age, and Bart's last colonoscopy being over 5 years ago, I did advise him that he needs a follow-up colonoscopy for screening purposes regardless of the questionable rectal exam. We did review the rationale for that in regard to colon cancer prevention. Full consent has been obtained for this, including risk of bleeding and perforation. The procedure will be done with monitored anesthesia care. He was advised to stop aspirin a full week before the procedure. Bart was comfortable with this plan. Thank you again for allowing me to participate in Bart's care. I shall continue to keep you advised of his progress. 03/05/2025 assistant terminal manager (current) use of aspirin (ICD-10 - Z79.82) Overall, Bart appears quite well. He is not having any new or worrisome GI complaints. I did not feel a definitive abnormality on his digital rectal exam today. He does have a somewhat tight anal sphincter which made the exam somewhat limited. Nonetheless, given his history of a tubular adenoma of the colon, his significant family history of his father having had colon cancer at a relatively young age, and Bart's last colonoscopy being over 5 years ago, I did advise him that he needs a follow-up colonoscopy for screening purposes regardless of the questionable rectal exam. We did review the rationale for that in regard to colon cancer prevention. Full consent has been obtained for this, including risk of bleeding and perforation. The procedure will be done with monitored anesthesia care. He was advised to stop aspirin a full week before the procedure. Bart was comfortable with this plan. Thank you again for allowing me to participate in Cynthias care. I shall continue to keep you advised of his progress. Plan Of Treatment Pending Test Test Name Order Date COLONOSCOPY 03/05/2025 Future Test Test Name Order Date COLONOSCOPY 07/16/2019 Next Appt Details Provider Name:Cecil Cosby , 06/16/2025 09:30:00 AM, [address] [place] [address] , [place], [place], [phone], Insurance Providers Payer Name Payer Address Payer Phone Subscriber Number Group Number Insured Name Patient Relationship to Insured Coverage Start Date Coverage End Date [facility] [address] [place] [phone] [id number] BART KC Self - patient is the insured 4 Medical (General) History Medical History History ICD Code Denies DE,DM,CVA,Lung disease,renal dise ase He had a neg. screening colo noscopy in October 2010 at [facility] by Dr. Ramirez Negative screening colonoscopy in 09/2019 except for a small tubular adenoma Surgical History Surgery Date(Month/Year) Cyst on lip removed as child Ingrown toenails as child
[2025-06-16 08:23] VITALS: BMI 30.2
[2025-06-16 08:28] VITALS: BP 139/80; PULSE 73; RESP 16; TEMP 36.5; O2SAT 95
[2025-06-16] MEDS: Lactated Ringers 1,000 ML 100 ML IVCONT (08:48)
--- NOTE | 2025-06-16 08:58 | HO.ANESPROP2 ---
Documented by User: Eda Abraham NP 06/13/25 14:21 HPI - Anesthesia Eval Consult details Narrative: 69yo M for Colonoscopy [facility] Past Medical History Medical History (Updated 06/12/25 @ 14:09 by Jie Moody RN) No pertinent past medical history Surgical History Surgical History (Updated 06/12/25 @ 14:08 by Jie Moody RN) Hx of excision of mass Hx of foot surgery H/O colonoscopy Social History Social History (Updated 06/12/25 @ 14:08 by Jie Moody RN) Patient Tobacco Use Status: Never used Tobacco Use of substances other than those prescribed or required for medical reasons: No Are you DNR?: No Advance Directives: No Advance Directives Information Provided: Yes Meds Allergies Allergy/AdvReac Type Severity Reaction Status Date / Time No Known Allergies Allergy Unverified 04/30/20 15:46 Home Medications ?Medication ?Instructions ?Recorded ?Confirmed ?Last Taken ?Type aspirin 81 mg tablet,delayed 81 mg PO DAILY 06/12/25 06/12/25 Unknown History release cholecalciferol (vitamin D3) 50 50 mcg PO DAILY 06/12/25 06/12/25 Unknown History mcg (2,000 unit) capsule (Vitamin D3) Exam Height,Weight and Vital Signs: Height 5 ft 8 in Weight 92.714 kg Assessment and Plan Assessment Anesthesia Assessment: Chart Reviewed Documented by User: Rima Stubbs DO 06/16/25 08:59 [facility] Past Medical History Medical History (Updated 06/12/25 @ 14:09 by Jie Moody RN) No pertinent past medical history Family History Family history of problems with anesthesia: No Surgical History Surgical History (Updated 06/12/25 @ 14:08 by Jie Moody RN) Hx of excision of mass Hx of foot surgery H/O colonoscopy History of Problems with Anesthesia: No Social History Social History (Updated 06/12/25 @ 14:08 by Jie Moody RN) Patient Tobacco Use Status: Never used Tobacco Use of substances other than those prescribed or required for medical reasons: No Are you DNR?: No Advance Directives: No Advance Directives Information Provided: Yes Meds Allergies Allergy/AdvReac Type Severity Reaction Status Date / Time No Known Allergies Allergy Unverified 04/30/20 15:46 Home Medications ?Medication ?Instructions ?Recorded ?Confirmed ?Last Taken ?Type aspirin 81 mg tablet,delayed 81 mg PO DAILY 06/12/25 06/12/25 Unknown History release cholecalciferol (vitamin D3) 50 50 mcg PO DAILY 06/12/25 06/12/25 Unknown History mcg (2,000 unit) capsule (Vitamin D3) Exam Exam Date and Time: 06/16/25 0858 Height,Weight and Vital Signs: Height 5 ft 8 in Weight 92.714 kg Vital Signs Temperature 97.7 F 06/16/25 08:28 Pulse Rate 73 06/16/25 08:28 Respiratory Rate 16 06/16/25 08:28 Blood Pressure 139/80 06/16/25 08:28 Pulse Oximetry 95 06/16/25 08:28 Oxygen Delivery Method Room Air 06/16/25 08:28 Temperature 97.7 F 06/16/25 08:28 Pulse Rate 73 06/16/25 08:28 Respiratory Rate 16 06/16/25 08:28 Blood Pressure 139/80 06/16/25 08:28 Pulse Oximetry 95 06/16/25 08:28 Oxygen Delivery Method Room Air 06/16/25 08:28 Airway Mallampati Class: III TM Dist: >3cm Neck ROM: Full Loose/Missing/Broken Teeth: No (patient denies any loose or broken teeth) Heart: S1S2 Lungs: CTAB Assessment and Plan Assessment Anesthesia Assessment: Anesthesia Plan Discussed and Chart Reviewed Final Anesthetic Review Family History of Problems with Anesthesia: No History of Problems with Anesthesia: No NPO: Yes ASA Class: I Final Preanesthetic Review: No Changes in Pt Med Stat, Meds/Allgs Chart Reviewed, Consent Obtained/Reviewed and Anes Risks/Benef Reviewed Patient Risk: Low Procedure Risk: Low Anesthetic Plan Anesthetic Plan: MAC: and Agree w/ Assess. and Plan Disposition: Standard PACU
[2025-06-16 10:28] VITALS: BP 92/57; PULSE 67; RESP 16; TEMP 36.4; O2SAT 95
--- NOTE | 2025-06-16 10:30 | P.BOP_ITS ---
Brief Operative Note Date of Service: 06/16/25 Pre-op diagnosis: Screening Post-op diagnosis: other (Diverticulosis) Procedure: Colonoscopy to the cecum and TI Surgeon: Cecil Cosby MD Anesthesia: MAC Was an Batter Depositor used for this Procedure?: No Estimated blood loss (mL): 0 Pathology: none sent Condition: stable Disposition: PACU
[2025-06-16 10:43] VITALS: BP 110/71; PULSE 76; RESP 16; TEMP 36.4; O2SAT 96
--- NOTE | 2025-06-16 11:12 | OP_ITS ---
DATE OF SERVICE: 06/16/2025 SURGEON: Cecil Cosby MD INDICATIONS: The patient presents for evaluation of colorectal cancer screening, family history of colon cancer, and personal history of tubular adenoma of the colon. PREOPERATIVE DIAGNOSIS: POSTOPERATIVE DIAGNOSIS: PROCEDURE PERFORMED: Colonoscopy to cecum and terminal ileum. ESTIMATED BLOOD LOSS: COMPLICATIONS: ANESTHESIA: Medication used, monitored anesthesia care. ASSISTANTS: SPECIMENS: POSTOPERATIVE DIAGNOSES: The patient presents for evaluation of colorectal cancer screening, family history of colon cancer, personal history of tubular adenoma of the colon, diverticulosis, and internal hemorrhoids. DESCRIPTION OF PROCEDURE: The digital rectal exam revealed a somewhat tight anal sphincter. There were no palpable lesions. The Olympus video pediatric colonoscope was entered into the rectum and advanced easily to the cecum. Once in the cecum, I did identify normal-appearing cecal pouch with appendiceal orifice and a normal-appearing ileocecal valve. The terminal ileum was cannulated and appeared normal. The scope was withdrawn back into the colon. The entire cecum including the appendiceal orifice was well visualized and appeared normal. The ileocecal valve appeared normal. The scope was slowly withdrawn assessing all mucosal surfaces carefully. Preparation was excellent. I did not visualize any sign of polyps, colitis, nor angiodysplasia. There was a mild amount of sigmoid diverticulosis. In the rectum, scope was retroflexed visualizing some internal hemorrhoids, but no other pathology. The rectal mucosa appeared normal. Scope was straightened out and withdrawn from the patient. He tolerated the procedure well and was returned to the recovery area in stable condition. IMPRESSION: 1. Diverticulosis. 2. Internal hemorrhoids. PLAN: Given his previous history and family history, I would recommend a repeat colonoscopy in 5 years for further screening. He will otherwise see me on a p.r.n. basis. MD JOSEPH Hart/EDMOND / [phone]
== END 2025-06-16 12:14 | disposition home or self-care (01) ==
PROVIDERS: PCP Internal Medicine; Visit Provider Internal Medicine
PROC: 0DJD8ZZ Inspection of Lower Intestinal Tract, Via Natural or Artificial Opening Endoscopic (ICD-10-PCS; CPT 45378; principal; 2025-06-16 09:30)
DX: Z12.11 Encounter for screening for malignant neoplasm of colon (principal); Z86.0101 Personal history of adenomatous and serrated colon polyps; Z80.0 Family history of malignant neoplasm of digestive organs; K57.30 Diverticulosis of large intestine without perforation or abscess without bleeding; K64.8 Other hemorrhoids; Z79.82 Long term (current) use of aspirin; Z79.899 Other long term (current) drug therapy
CPT/HCPCS: G0105; J2003; J2704

== ENCOUNTER 2025-07-02 08:46 | Outpatient (AMB) | payer MEDICARE, SELFPAY ==
--- OUTSIDE RECORDS SUMMARY | 2024-02-01 02:45 | XMS_ITS ---
Author Organization Dewayne Galvan MD Address [address] [place], [place] [id number] Care Team Providers Care Baggage Clerk Name Role Phone Dewayne Galvan Primary Care Provider Results Component Value Reference Range Notes Complete Blood Count Auto Di ff Reviewed date:02/01/2024 05:21:57 PM Interpretation: Performing Lab:[facility], [address] [place] [phone] Notes/Report: White Blood Count 6.3 4.8-10.8 X10*3/uL Red Blood Count 5.72 4.60-5.80 X10*6/uL Hemoglobin 16.7 14.0-18.0 g/dl Hematocrit 50.1 42.0-52.0 % Mean Corpuscular Volume 87.6 80.0-98.0 fL Mean Corpuscular Hemoglobin 29.2 27.0-33.0 pg Mean Corpuscular HGB Conc 33.3 31.0-36.0 g/dl Red Cell Distribution Width 13.1 11.0-16.0 % Platelet Count 180 160-400 X10*3/uL Mean Platelet Volume 11.4 9.4-12.4 fL Neutrophils Percent Auto 54.2 45-73 % Imm Gran Pct Auto 0.2 0.0-0.4 % Lymphocytes Percent Auto 31.2 20-40 % Monocytes Percent Auto 10.1 2-11 % Eosinophils Percent Auto 3.8 0-4 % Basophils Percent Auto 0.5 0-2 % NRBC Pct Auto 0.0 0.0-0.2 /100WBC Neutrophils Absolute Auto 3.4 2.0-8.3 x10*3/u L Imm Gran Abs Auto 0.01 0.00-0.03 X10*3/uL Lymphocytes Absolute Auto 2.0 1.2-4.9 X10*3/u L Monocytes Absolute Auto 0.6 0.1-1.2 X10*3/uL Eosinophils Absolute Auto 0.2 0.0-0.4 X10*3/u L Basophils Absolute Auto 0.0 0.0-0.2 X10*3/uL NRBC Abs Auto 0.000 0.0-0.012 X10*3/uL Urinalysis and Microscopic Reviewed date:02/01/2024 05:14:04 PM Interpretation: Performing Lab:[facility], [address] [place] [phone] Notes/Report: Color Urine Yellow Appearance Urine Clear PH 8.5 5.0-9.0 Glucose Urine UA Negative Negative mg/dL Urine Blood Negative Negative Specific [place] - Urine 1.015 1.005-1.025 Urine Protein Negative Neg-Trace mg/dL Urine Ketones Negative Negative mg/dL Nitrite Urine Negative Negative Leukocyte Esterase Urine Negative Negative RBC Urine 0-2 0-2 /HPF WBC Urine 0-5 0-5 /HPF Squamous Epithelial Cell Urine 0-2 0-2 /HPF Bacteria Urine None Seen None Seen Hyaline Casts Urine 0-2 0-2 /LPF Comprehensive [place]. Panel Fa Reviewed date:02/01/2024 05:07:02 PM Interpretation: Performing Lab:[facility], [address] [place] [phone] Notes/Report: Sodium 141 135-145 mmol/L Potassium 3.8 3.3-5.1 mmol/L Chloride 105 96-108 mmol/L Carbon Dioxide 30 22-29 mmol/L Anion Gap 10 12-20 Blood Urea Nitrogen 17 9-16 mg/dL Creatinine 0.85 0.5-1.4 mg/dL Estimated Glomerular Filt Rate > 60 NOTE: For -Romanian individuals, multiply the result by 1.210. Chronic Kidney Disease: Estimated GFR < 60 mL/min/1.73m2 Severe Kidney Disease: Estimated GFR < 15 mL/min/1.73m2 Glucose Fasting 91 60-99 mg/dL Calcium 9.2 8.4-10.2 mg/dL Bilirubin Total 0.7 0.0-1.0 mg/dL Aspartate Amino Transferase 29 5-37 U/L Alanine Aminotransferase 28 0-40 U/L Total Protein 6.8 6.5-8.0 g/dL Albumin Level 4.2 3.5-5.0 g/dL Alkaline Phosphatase 51 39-117 U/L Lipid Panel Reviewed date:02/01/2024 05:06:40 PM Interpretation: Performing Lab:[facility], [address] [place] [phone] Notes/Report: Triglycerides 65 <150 mg/dL Desirable Triglyceride: less than 150 mg/dL Borderline High Triglyceride 150-199 mg/dL High Triglyceride: 200-499 mg/dL Very High Triglyceride: greater than or equal to 5OO mg/dL Cholesterol 146 <200 mg/dL Desirable Cholesterol: less than 200 mg/dL Borderline High Cholesterol: 200-239 mg/dL High Cholesterol: greater than 239 mg/dL LDL Cholesterol Calculated 98 <100 mg/dL Desirable LDL: less than 100 mg/dL Near Optimal/Above Optimal LDL: 110-129 mg/dL Borderline High LDL: 130-159 mg/dL High LDL: 160-189 mg/dL Very High LDL: greater than or equal to 190 mg/dL HDL Cholesterol 35 >40 mg/dL Desirable HDL: greater than 40 mg/dL Note: This HDL assay may give artificially low results in patients with liver disease. PSA,Total (Free>4and<10) Reviewed date:02/01/2024 05:12:19 PM Interpretation: Performing Lab:[facility], [address] [place] [phone] Notes/Report: PSA,Total (Free>4and<10) 0.46 0.00-4.00 ng/mL A Free PSA was not performed: The percentage of Free PSA can be used to enhance the differentiation of prostate cancer from benign prostatic disease in subjects whose PSA levels are between 4.0 and 10.0 ng/mL. For subjects whose PSA levels are below 4.0 or above 10.0 ng/mL, the risk of prostate cancer is determined on the basis of the PSA alone. Therefore the % Free PSA is recommended only for those subjects whose PSA levels are between 4.0 and 10.0 ng/mL. PSA methodology: Walter Alinity i Chemiluminescent Microparticle Immunoassay (CMIA) REASON FOR VISIT FASTING LABS Encounters Encounter Location Date Provider Diagnosis Dewayne Galvan MD [address] [place] [address] [place] [phone] 02/01/2024 Dewayne Galvan Blood tests for routine general physical examination Z00.00 Assessments Encounter Date Diagnosis (ICD Code) Assessment Notes Treatment Notes Treatment Clinical Notes Section Notes 02/01/2024 Blood tests for routine general physical examination (ICD-10 - Z00.00) Plan Of Treatment Next Appt Details Provider Name:Dewayne kidd, 02/10/2026 07:45:00 AM, [address] [place] [address], Suite [facility], [place], [place], [phone], Provider Name:Dewayne kidd, 02/17/2026 09:30:00 AM, [address] [place] [address], [place] [address], [place], [place], [phone], Progress Notes * ALCONGBart STEVENDOB: (69 yo M)Acc No.[id number]:02/01/2024 Progress Note Patient: Bart MONAHAN Provider: La Nena Galvan MD :1955 A ge:68 Y S ex:Male Date:02/01/2024 Address:[address] [place], [place] [phone] Subjective: * Chief Complaints: * 1 . FASTING LABS. * Medical History: Objective: * Vitals: Assessment: * Assessment: 1. B lood tests for routine general physical examination - Z00.00 (Primary) Plan: * Treatment: * Procedure Codes: 3 6415 VENIPUNCT, ROUTINE* * * The named appointment provid er may or may not be the originator of this progress note, and it is not deemed complete until electronically signed by the appointment provider. Sign off status: Pending * Provider: La Nena Galvan MD Date: 0 02/01/2024 Generated for Kem gutierrez/Rob/eTransmitting on: 09/01/2024 04:26 PM EST
--- OUTSIDE RECORDS SUMMARY | 2024-02-08 04:30 | XMS_ITS ---
Author Organization Dewayne Galvan MD Address [address] [place], [place] [id number] Care Team Providers Care Respiratory Care Program Director Name Role Phone Dewayne Galvan Primary Care Provider [phone] Allergies No Known Allergies Results Component Value Reference Range Notes Occult Blood, Stool, Guaiac Reviewed date:02/08/2024 01:22:56 PM Interpretation:Negative Performing Lab: Notes/Report: Negative Occult Blood, Stool, Guaiac Neg Vitamin D 25-OH Total Reviewed date:02/09/2024 12:23:16 PM Interpretation: Performing Lab:[facility], [address] [place] [id number] Notes/Report: Vitamin D 25-OH Total 37.9 >30 ng/mL Health Based Reference Values* < 20 ng/mL Deficient 20-30 ng/mL Insufficient > 30 ng/mL Sufficient *Bryce CHAPMAN. N Engl J Med. 2007;357:266-280 Care must be taken in interpreting Vitamin D results from different laboratories and methodologies. Published data demonstrated that results from patients undergoing hemodialysis may show a negative bias when tested with various automated 25-OH vitamin D assays when compared to LC-MS/MS. When testing samples from patients whose predominant form of Vitamin D is Vitamin D2, such as patients receiving Vitamin D2 supplementation, results that are subtherapeutic should be confirmed with another method such as LC-MS/MS. REASON FOR VISIT ANNUAL EXAM Medications Medication SIG (Take, Route, Frequency, Duration) Notes Start Date End Date Status Vitamin D 25 MCG (1000 UT) 1 tablet Orally Once a day for 30 day(s) Not-Taking Social History Tobacco Use: Social History Observation Description Date Details (start date - stop date) Never Smoker NA - NA Tobacco Use/Smoking Question Answer Notes Patient is a nonsmoker Additional Findings: Tobacco Non-User Cu rrent non-smoker, currently using no form of tobacco Alcohol Screen Question Answer Notes Did you have a drink containing alcohol in the p ast year? No Points 0 Interpretation Negative Problems Problem Type SNOMED Code ICD Code Onset Dates Problem Status W/U Status Risk Notes Problem 2330764975756 Bilateral tinnitus (H93.13) Active confirmed Problem 48619897 Vitamin D deficiency (E55.9) Active confirmed Vital Signs Blood pressure systolic 112 mm Hg 02/08/20 24 Blood pressure diastolic 70 mm Hg 024 Height 66.5 in 02/08/2024 Weight 198 lbs 02/08/2024 BMI 31.48 kg/m2 02/08/2024 weight is down 3 pounds [facility] 02-06-23 Encounters Encounter Location Date Provider Diagnosis Dewayne Galvan MD [address] [facility] [address] [place], [place] [id number] 02/08/2024 Dewayne Galvan Bilateral tinnitus H93.13 ; Annual physical exam Z00.00 ; Vitamin D deficiency E55.9 ; Dysthymia F34.1 ; Colon cancer screening Z12.11 and Negative depression screening Z13.31 Assessments Encounter Date Diagnosis (ICD Code) Assessment Notes Treatment Notes Treatment Clinical Notes Section Notes 02/08/2024 Bilateral tinnitus (ICD-10 - H93.13) will observe, nothing to do 02/08/2024 Annual physical exam (ICD-10 - Z00.00) labs reviewed and discussed with patient 02/08/2024 Vitamin D deficiency (ICD-10 - E55.9) stable, will continue to monitor 02/08/2024 Dysthymia (ICD-10 - F34.1) doing well, will continue current regiment 02/08/2024 Colon cancer screening (ICD-10 - Z12.11) guaiac negative 02/08/2024 Negative depression screening (ICD-10 - Z13.31) negative screen Plan Of Treatment Treatment Notes Assessment Notes Bilateral tinnitus will observe, nothin g to do Annual physical exam labs reviewed and d iscussed with patient Vitamin D deficiency stable, will contin ue to monitor Dysthymia doing well, will con tinue current regiment Colon cancer screening guaiac negative Negative depression screening negative britney hendricks Next Appt Details Follow Up: 1 Year, Reason: Provider Name:Dewayne Bill Diana ier, 02/10/2026 07:45:00 AM, [address], [address], [place], [place], [id number], Provider Name:Dewayne Ortiz ier, 02/17/2026 09:30:00 AM, [address], [address], [place], [place], [phone], Progress Notes * Bart KCDOB: (68 yo M)Acc No.[id number]:02/08/2024 Progress Notes Patient: Britney Pam garciater Provider: La Nena Galvan MD :1955 A ge:68 Y S ex:Male Date:02/08/2024 Address:[address] [place], [place] [id number] Subjective: * Chief Complaints: * A NNUAL EXAM * HPI: D epression Screening: PHQ-9 L ittle interest or pleasure in doing things N ot at all, F eeling down, depressed, or hopeless N ot at all, T rouble falling or staying asleep, or sleeping too much N ot at all, F eeling tired or having little energy N ot at all, P oor appetite or overeating N ot at all, F eeling bad about yourself or that you are a failure, or have let yourself or your family down N ot at all, T rouble concentrating on things, such as reading the newspaper or watching television N ot at all, M oving or speaking so slowly that other people could have noticed; or the opposite, being so fidgety or restless that you have been moving around a lot more than usual N ot at all, T houghts that you would be better off or of hurting yourself in some way N ot at all, T otal Score 0 . I nterpretation and Intervention D epression Screening Findings N egative, F ollow-Up for Depression : review of PHQ-9 found negative result, no follow-up needed. C ommunication Needs: Communication Needs D oes the patient have a hearing impairment N o, D oes the patient have a vision impairment? Y es, I f yes, what is the vision impairment? G lasses, D oes the patient have a cognition impairment? N o. F all Risk: History H ave you had any falls with injury in the past year? N o, H ave you had two or more falls in the past year? N o. S MANFRED Questions: SDOH Questions I n the past year have you or any family members you live with been unable to get any of the following when it was really needed? Check all that apply: N one. S ymptom(s): patient is a 68 yo male here for annual visit with review of recent lasb and follow up of chronic issues. * ROS: G eneral/Constitutional: Patient denies f atigue , headache. C hange in appetite?denies. C hills d enies. F ever d enies. O phthalmologic: Blurred vision d enies. D ischarge d enies. P ain d enies. E NT: Patient denies d ecreased sense of smell , any loss of taste , sore throat. D ecreased hearing d enies. S ore throat d enies. S wollen glands d enies. E ndocrine: Cold intolerance d enies. E xcessive thirst d enies. H eat intolerance d enies. W eight loss d enies. R espiratory: Cough d enies. S hortness of breath at rest d enies. S hortness of breath with exertion d enies. W heezing d enies. C ardiovascular: Chest pain at rest d enies. C hest pain with exertion?denies. I rregular heartbeat d enies. S hortness of breath d enies. ? G astrointestinal: Abdominal pain d enies. C hange in bowel habits d enies. D iarrhea d enies. N ausea d enies. R ectal bleeding d enies. V omiting d enies . G enitourinary: Blood in urine d enies. D ifficulty urinating d enies. F requent urination d enies. M usculoskeletal: Patient denies m uscle aches. P ainful joints d enies. W eakness d enies. P eripheral Vascular: Patient denies r ed and blue toes. S kin: Dry skin d enies. I tching d enies. D enies?Mole(s), changes in moles, new moles or any lesions of concern. D enies P hotosensitivity. R steve d enies. N eurologic: Dizziness d enies. F ainting d enies. H eadache?denies. * Medical History: * Surgical History: * Hospitalization/Major Diagno stic Procedure: * Family History: F ather: 57 yrs. M other: 83 yrs. 2 brother(s) . . Father colon cancer Mother- ? Father alcoholic, D. * Social History: T obacco Use: T obacco Use/Smoking P atient is a n onsmoker, A dditional Findings: Tobacco Non-User C urrent non-smoker, currently using no form of tobacco. D rugs/Alcohol: A lcohol Screen D id you have a drink containing alcohol in the past year? N o, P oints 0 , I nterpretation N egative. M iscellaneous: C affeine: yes, frequency:, more than 4 cups per day. no Children. no Community involvements. Exercise: yes, gardening. Home smoke detector use: yes. Housing: owning. Marital status: single. Occupation: weeks/months/years, retired. no Travel outside of the [place]. * Medications: N ot-Taking/PRNVitamin D 25 MCG (1000 UT) Tablet 1 tablet Orally Once a dayMedication List reviewed and reconciled with the patientNot-Taking/PRN Vitamin D 25 MCG (1000 UT) Tablet 1 tablet Orally Once a dayMedication List reviewed and reconciled with the patient * Allergies: N .K.D.A.yes[Allergies Verified] Objective: * Vitals: H t: 66.5, Wt:198, BMI:31.48, BP:112/70 weight is down 3 pounds since 02-06-23. * P ast Orders: L ab:Lipid Panel (Order Date - 02/01/2024) (Collection Date - 02/01/2024) Value Reference Range Triglycerides 65 <150 - mg/dL Cholesterol 146 <200 - mg/dL LDL Cholesterol Calculated 98 <100 - mg/dL HDL Cholesterol 35 L >40 - mg/dL L ab:PSA,Total (Free>4and<10) (Order Date - 02/01/2024) (Collection Date - 02/01/2024) Value Reference Range PSA,Total (Free>4and<10) 0.46 0.00-4.00 - ng/ mL L ab:Complete Blood Count Auto Diff (Order Date - 02/01/2024) (Collection Date - 02/01/2024) Value Reference Range White Blood Count 6.3 4.8-10.8 - X10*3/uL Red Blood Count 5.72 4.60-5.80 - X10*6/uL Hemoglobin 16.7 14.0-18.0 - g/dl Hematocrit 50.1 42.0-52.0 - % Mean Corpuscular Volume 87.6 80.0-98.0 - fL Mean Corpuscular Hemoglobin 29.2 27.0-33.0 - pg Mean Corpuscular HGB Conc 33.3 31.0-36.0 - g/ dl Red Cell Distribution Width 13.1 11.0-16.0 - % Platelet Count 180 160-400 - X10*3/uL Mean Platelet Volume 11.4 9.4-12.4 - fL Neutrophils Percent Auto 54.2 45-73 - % Imm Gran Pct Auto 0.2 0.0-0.4 - % Lymphocytes Percent Auto 31.2 20-40 - % Monocytes Percent Auto 10.1 2-11 - % Eosinophils Percent Auto 3.8 0-4 - % Basophils Percent Auto 0.5 0-2 - % NRBC Pct Auto 0.0 0.0-0.2 - /100WBC Neutrophils Absolute Auto 3.4 2.0-8.3 - x10* 3/uL Imm Gran Abs Auto 0.01 0.00-0.03 - X10*3/uL Lymphocytes Absolute Auto 2.0 1.2-4.9 - X10* 3/uL Monocytes Absolute Auto 0.6 0.1-1.2 - X10*3/ uL Eosinophils Absolute Auto 0.2 0.0-0.4 - X10* 3/uL Basophils Absolute Auto 0.0 0.0-0.2 - X10*3/ uL NRBC Abs Auto 0.000 0.0-0.012 - X10*3/uL L ab:Urinalysis and Microscopic (Order Date - 02/01/2024) (Collection Date - 02/01/2024) Value Reference Range Color Urine Yellow - RBC Urine 0-2 0-2 - /HPF Appearance Urine Clear - PH 8.5 5.0-9.0 - Glucose Urine UA Negative Negative - mg/dL Urine Blood Negative Negative - Specific [place] - Urine 1.015 1.005-1.025 - Urine Protein Negative Neg-Trace - mg/dL Urine Ketones Negative Negative - mg/dL Nitrite Urine Negative Negative - Leukocyte Esterase Urine Negative Negative - WBC Urine 0-5 0-5 - /HPF Squamous Epithelial Cell Urine 0-2 0-2 - /HP F Bacteria Urine None Seen None Seen - Hyaline Casts Urine 0-2 0-2 - /LPF L ab:Comprehensive [place]. Panel Fast (Order Date - 02/01/2024) (Collection Date - 02/01/2024) Value Reference Range Sodium 141 135-145 - mmol/L Bilirubin Total 0.7 0.0-1.0 - mg/dL Aspartate Amino Transferase 29 5-37 - U/L Alanine Aminotransferase 28 0-40 - U/L Total Protein 6.8 6.5-8.0 - g/dL Albumin Level 4.2 3.5-5.0 - g/dL Alkaline Phosphatase 51 39-117 - U/L Potassium 3.8 3.3-5.1 - mmol/L Chloride 105 96-108 - mmol/L Carbon Dioxide 30 H 22-29 - mmol/L Anion Gap 10 L 12-20 - Blood Urea Nitrogen 17 H 9-16 - mg/dL Creatinine 0.85 0.5-1.4 - mg/dL Estimated Glomerular Filt Rate > 60 - Glucose Fasting 91 60-99 - mg/dL Calcium 9.2 8.4-10.2 - mg/dL * Examination: G eneral Examination: GENERAL APPEARANCE: w ell developed, well nourished, in no acute distress. HEAD: n ormocephalic, atraumatic. EYES: p upils equal, round, reactive to light and accommodation, sclera non-icteric. EARS: n ormal. ORAL CAVITY: m ucosa moist. THROAT: c lear. NECK/THYROID: n kacey supple, full range of motion, no cervical lymphadenopathy, no bruits. SKIN: w arm and dry, no suspicious lesions. HEART: r egular rate and rhythm, S1, S2 normal, no murmurs.? LUNGS: c lear to auscultation bilaterally. ABDOMEN: s oft, nontender, nondistended, bowel sounds present, normal, no organomegaly , no masses palpable. RECTAL EXAM: n ormal tone, no external hemorrhoids, no masses palpable, prostate normal, stool guaiac negative. MALE GENITOURINARY: n ot examined. EXTREMITIES: n o clubbing, cyanosis, or edema. NEUROLOGIC: n onfocal, motor strength normal upper and lower extremities, sensory exam intact. Assessment: * Assessment: 1. A nnual physical exam - Z00.00 (Primary) 2 . B ilateral tinnitus - H93.13 3 .?Vitamin D deficiency - E55.9 4 . D ysthymia - F34.1 5 . C olon cancer screening - Z12.11 6 . N egative depression screening - Z13.31 Plan: * Treatment: 2. B ilateral tinnitus Notes: will observe, nothing to do. 3. V itamin D deficiency L AB: Vitamin D 25-OH Total Notes: stable, will continue to monitor. 4. D ysthymia Notes: doing well, will continue current regiment. 5. C olon cancer screening L AB: Occult Blood, Stool, Guaiac N egative Value Reference Range O ccult Blood, Stool, Guaiac Neg Notes: guaiac negative.??6.?Negative depression screening? Notes: negative screen.?? * Procedure Codes: 3 6415 VENIPUNCT, ROUTINE*76015 TEST FOR BLOOD, FECES * Preventive Medicine: Counseling: C are goal follow-up plan: C ounseling for abnormal BMI provided?Yes, A gisselle Normal BMI Follow-up G iving encouragement to exercise. * Follow Up: 1 Year * * Sign off status: Completed true * Provider: La Nena Galvan MD Date: 0 02/08/2024 Generated for Kem gutierrez/Rob/[place] on: 1 09/01/2024 04:26 PM EST History and Physical Notes * HPI (History of Present Illness) Category Sub-Category Detail Notes Category Not es Symptom(s) patient is a 68 yo male here for annual visit with review of recent lasb and follow up of chronic issues. Depression Screening PHQ-9 Little inte rest or pleasure in doing things: Not at all Feeling down, depressed, or hopeless: No t at all Trouble falling or staying asleep, or sl eeping too much: Not at all Feeling tired or having little energy: N ot at all Poor appetite or overeating: Not at all Feeling bad about yourself o r that you are a failure, or have let yourself or your family down: Not at all Trouble concentrating on thi ngs, such as reading the newspaper or watching television: Not at all Moving or speaking so slowly that other people could have noticed; or the opposite, being so fidgety or restless that you have been moving around a lot more than usual: Not at all Thoughts that you would be b gilmar off or of hurting yourself in some way: Not at all Total Score: 0 Interpretation and Intervention Depression Bernie richardson Findings: Negative Follow-Up for Depression: : review of PH Q-9 found negative result, no follow-up needed SDOH Questions SDOH Questions In the past year have you or any family members you live with been unable to get any of the following when it was really needed? Check all that apply:: None Fall Risk History Have you had any falls with injury in the past year?: No Have you had two or more falls in the st year?: No Communication Needs Communication Needs Does the patient have a hearing impairment: No Does the patient have a vision impairmen t?: Yes If yes, what is the vision impairment?: Glasses Does the patient have a cognition impair ment?: No Examination Category Sub-Category Detail Notes Category Not es General Examination GENERAL APPEARANCE: well dev eloped, well nourished, in no acute distress HEAD: normocephalic, atrau matic EYES: pupils equal, round, reactive to light and accommodation, sclera non-icteric EARS: normal THROAT: clear NECK/THYROID: neck supple, full ra nge of motion, no cervical lymphadenopathy, no bruits HEART: regular rate and rhy thm, S1, S2 normal, no murmurs LUNGS: clear to auscultatio n bilaterally ABDOMEN: soft, nontender, non distended, bowel sounds present, normal, no organomegaly , no masses palpable NEUROLOGIC: nonfocal, motor stre ngth normal upper and lower extremities, sensory exam intact SKIN: warm and dry, no ciera picious lesions EXTREMITIES: no clubbing, cyanosi s, or edema MALE GENITOURINARY: not examined RECTAL EXAM: normal tone, no exte rnal hemorrhoids, no masses palpable, prostate normal, stool guaiac negative ORAL CAVITY: mucosa moist
--- OUTSIDE RECORDS SUMMARY | 2025-02-03 02:15 | XMS_ITS ---
Author Organization Dewayne Galvan MD Address [address] [place], [place] [phone] Care Team Providers Care Faculty Physician Name Role Phone Dewayne Galvan Primary Care Provider [phone] Results Component Value Reference Range Notes Complete Blood Count Auto Di ff Reviewed date:02/03/2025 12:36:45 PM Interpretation: Performing Lab:[facility], [address] [place] [phone] Notes/Report: White Blood Count 7.0 4.8-10.8 X10*3/uL [...] NRBC Abs Auto 0.000 0.0-0.012 X10*3/uL Comprehensive [place]. Panel Fa st Reviewed date:02/03/2025 12:37:46 PM Interpretation: Performing Lab:[facility], [address] [place] [phone] Notes/Report: Sodium 141 135-145 mmol/L Potassium 3.6 [...] Panel Reviewed date:02/03/2025 12:36:53 PM Interpretation: Performing Lab:[facility], [address] [place] [phone] Notes/Report: Triglycerides 68 <150 mg/dL Desirable Triglyceride: [...] (Free>4and<10) Reviewed date:02/03/2025 12:36:25 PM Interpretation: Performing Lab:[facility], [address] [place] [phone] Notes/Report: PSA,Total (Free>4and<10) 0.45 0.00-4.00 ng/mL A [...] Total Reviewed date:02/03/2025 12:37:20 PM Interpretation: Performing Lab:[facility], [address] [place] [phone] Notes/Report: Vitamin D 25-OH Total 61.5 >30 [...] t Reviewed date:02/04/2025 05:30:34 PM Interpretation: Performing Lab:[facility], [address] [place] [phone] Notes/Report: [id number] 0715 Urine, Clean Catch Color Urine Yellow Appearance Urine Clear PH 7.0 5.0-9.0 Glucose Urine UA Negative Negative mg/dL Urine Blood Negative Negative Specific [place] - Urine 1.015 1.005-1.025 Urine Protein Negative [...] Date Provider Diagnosis Dewayne Galvan MD [address] [place], [place] [phone] 02/03/2025 Dewayne Galvan Blood tests for routine general physical examination Z00.00 and Vitamin D deficiency E55.9 Assessments Encounter Date Diagnosis (ICD Code) Assessment Notes Treatment Notes Treatment Clinical Notes Section Notes 02/03/2025 Blood tests for routine general physical examination (ICD-10 - Z00.00) 02/03/2025 Vitamin D deficiency (ICD-10 - E55.9) Plan Of Treatment Next Appt Details Provider Name:Dewayne kidd, 02/10/2026 07:45:00 AM, [address], [address], [place], [place], [phone], Provider Name:Dewayne Ortiz ier, 02/17/2026 09:30:00 AM, [address], [address], [place], [place], [phone], Progress Notes * Bart KCDOB: 4 (69 yo M)Acc No.[id number]:02/03/2025 Progress Note Patient: Bart MONAHAN Provider: La Nena Galvan MD :1955 A ge:69 Y S ex:Male Date:02/03/2025 Address:[address] [place], [place] [phone] Subjective: * Chief Complaints: * 1 . Yearly fasting labs. * Medical History: Objective: * Vitals: Assessment: * Assessment: 1. B lood tests for routine general physical examination - Z00.00 (Primary) 2 .?Vitamin D deficiency - E55.9 Plan: * Treatment: 2. V itamin D deficiency L AB: Complete Blood Count Auto Diff (Collection Date & Time - 02/03/2025 07:15 AM) L AB: Comprehensive [place]. Panel Fast (Collection Date & Time - [...] 02/03/2025 Generated for Kem gutierrez/Rob/eTleroysmitting on: 1 09/01/2024 04:26 PM EST
--- OUTSIDE RECORDS SUMMARY | 2025-02-10 04:30 | XMS_ITS ---
Author Organization Dewayne Galvan MD Address [address] [place], [place] [phone] Care Team Providers Care Broadcast Transmitter Operator Name Role Phone Dewayne Galvan Primary Care Provider Allergies No Known Allergies Results Component Value Reference Range Notes Occult Blood, Stool, Guaiac Reviewed date:02/10/2025 10:19:41 AM Interpretation:Negative Performing Lab: Notes/Report: Negative Occult Blood, Stool, Guaiac Neg Reason For Referral Reason K62. Rectal abnormal ity needs a urgent appt Diagnosis 1 Rectal abnormality ( K62.9) Referral Organization Dewayne Galvan MD Referring Provider First Name Dewayne Referring Provider Last Name Mandy Referring Provider Speciality Internal M edicine Referred Provider Cecil Cosby Referred Provider Specialty Gastroentero logy General Notes Betty Myles 0 02/10/2025 10:06:14 AM > info faxed, Betty Myles 02/21/2025 01:15:07 PM >was told on Dr. Cosby's desk for review, Betty Myles 02/28/2025 03:11:50 PM > was told still being reviewed, Betty Myles 03/04/2025 10:44:10 AM >patient is aware of appt Referral Priority Routine Referral Appointment Date 03/05/2025 REASON FOR VISIT annual visit Medications Medication SIG (Take, Route, Frequency, Duration) [...] Problem Status W/U Status Risk Notes Problem Tubular adenoma (390451900) Tubular adenoma (D36.9) Active confirmed Vital Signs Blood pressure systolic 112 mm Hg 02/11/20 25 Blood pressure diastolic 80 mm Hg 025 Height 66.5 in 02/10/2025 Weight 203 lbs 02/10/2025 BMI 32.27 kg/m2 02/10/2025 weight is up 5 pounds since 02-08-24 Encounters Encounter Location Date Provider Diagnosis Dewayne Galvan MD [address] [place] [address] [place] [phone] 02/10/2025 Dewayne Galvan Vitamin D deficiency E55.9 ; Annual physical exam Z00.00 ; Tubular adenoma D36.9 ; Rectal abnormality K62.9 ; Dysthymia F34.1 ; Colon cancer screening Z12.11 and Depression screening Z13.31 Assessments Encounter Date Diagnosis (ICD Code) Assessment Notes Treatment Notes Treatment Clinical Notes Section Notes 02/10/2025 Vitamin D deficiency (ICD-10 - E55.9) decrease to 1000 units per day 02/10/2025 Annual physical exam (ICD-10 - Z00.00) labs reviewed and discussed with patent 02/10/2025 Tubular adenoma (ICD-10 - D36.9) due for colonoscopy 02/10/2025 Rectal abnormality (ICD-10 - K62.9) seems most likely a thrombosed hemorrhoid but is due for his colonoscopy so will get that done more quickly 02/10/2025 Dysthymia (ICD-10 - F34.1) stable 02/10/2025 Colon cancer screening (ICD-10 - Z12.11) guaiac negative 02/10/2025 Depression screening (ICD-10 - Z13.31) negative screen Plan Of Treatment Treatment Notes Assessment Notes Vitamin D deficiency decrease to 1000 un its per day Annual physical exam labs reviewed and d iscussed with patent Tubular adenoma due for colonoscopy Rectal abnormality seems most likely a thrombosed hemorrhoid but is due for his colonoscopy so will get that done more quickly Dysthymia stable Colon cancer screening guaiac negative Depression screening negative screen Referrals Referral Date Details 02/10/2025 02/10/2025, K62. Rec myriam abnormality needs a urgent appt, Cecil Cosby Next Appt Details Follow Up: 1 Year, Reason: Provider Name:Dewayne Ortiz ier, 02/10/2026 07:45:00 AM, [address], [address], [place], [place], [phone], Provider Name:Dewayne Ortiz ier, 02/17/2026 09:30:00 AM, [address], [address], [place], [place], [phone], Progress Notes * Bart KCDOB: (69 yo M)Acc No.[id number]:02/10/2025 Progress Notes Patient: Bart MONAHAN Provider: La Nena Galvan MD :1955 A ge:69 Y S ex:Male Date:02/10/2025 Address:[address] [place], [place] [phone] Subjective: * Chief Complaints: * A nnual visit * HPI: D epression Screening: PHQ-9 L [...] I n the past year have you been worried about losing housing? N o, I n the past year have you or any family members you live with been unable to get any of the following when it was really needed? Check all that apply: N one. S ymptom(s): patient is a 69 yo male here for annual visit with review of recent labs and follow up of chronic issues. * ROS: G eneral/Constitutional: Change in appetite d enies. C hills d enies. F ever d enies. O phthalmologic: Blurred vision d enies. D ischarge d enies. P ain d enies. E NT: Decreased hearing d enies. S ore throat d enies.?Swollen glands d enies. E ndocrine: Cold intolerance [...] F requent urination d enies. M usculoskeletal: Painful joints d enies. W eakness d enies. ? S kin: Dry skin d enies. I [...] frequency:, more than 4 cups per day. Children: no. Community involvements: no. Exercise: yes, gardening walks 2 miles a few dys a week. Home smoke detector use: yes. Housing: owning. Marital status: single. Occupation: weeks/months/years, retired. Travel outside of the [place]: no. * Medications: N ot-Taking/PRNVitamin D 25 MCG (1000 UT) Tablet 1 tablet Orally Once a day Medication List reviewed and reconciled with the patientNot-Taking/PRN Vitamin D 25 MCG (1000 UT) Tablet 1 tablet Orally Once a day Medication List reviewed and reconciled with the patient * Allergies: N .K.D.A.yes[Allergies Verified] Objective: * Vitals: H t: 66.5, Wt: 203, BMI:32.27, BP:112/80, Wt-k.08. weight is up 5 pounds since 02-08-24. * P ast Orders: L ab:PSA,Total (Free>4and<10) (Order Date - 02/03/2025) (Collection Date & Time - 02/03/2025 07:15 AM) Value Reference Range PSA,Total (Free>4and<10) 0.45 0.00-4.00 - ng/ mL L ab:Vitamin D 25-OH Total (Order Date - 02/03/2025) (Collection Date & Time - 02/03/2025 07:15 AM) Value Reference Range Vitamin D 25-OH Total 61.5 >30 - ng/mL L ab:Complete Blood Count Auto Diff (Order Date - 02/03/2025) (Collection Date & Time - 02/03/2025 07:15 AM) Value Reference Range White Blood Count 7.0 4.8-10.8 - X10*3/uL Red Blood Count 5.76 4.60-5.80 - X10*6/uL Hemoglobin 16.7 14.0-18.0 - g/dl Hematocrit 50.0 42.0-52.0 - % Mean Corpuscular Volume 86.8 80.0-98.0 - fL Mean Corpuscular Hemoglobin 29.0 27.0-33.0 - pg Mean Corpuscular HGB Conc 33.4 31.0-36.0 - g/ dl Red Cell Distribution Width 12.8 11.0-16.0 - % Platelet Count 184 160-400 - X10*3/uL Mean Platelet Volume 11.1 9.4-12.4 - fL Neutrophils Percent Auto 52.0 45-73 - % Imm Gran Pct Auto 0.3 0.0-0.4 - % Lymphocytes Percent Auto 34.0 20-40 - % Monocytes Percent Auto 9.2 2-11 - % Eosinophils Percent Auto 3.9 0-4 - % Basophils Percent Auto 0.6 0-2 - % NRBC Pct Auto 0.0 0.0-0.2 - /100WBC Neutrophils Absolute Auto 3.6 2.0-8.3 - x10* 3/uL Imm Gran Abs Auto 0.02 0.00-0.03 - X10*3/uL Lymphocytes Absolute Auto 2.4 1.2-4.9 - X10* 3/uL Monocytes Absolute Auto 0.6 0.1-1.2 - X10*3/ uL Eosinophils Absolute Auto 0.3 0.0-0.4 - X10* 3/uL Basophils Absolute Auto 0.0 0.0-0.2 - X10*3/ uL NRBC Abs Auto 0.000 0.0-0.012 - X10*3/uL L ab:Comprehensive [place]. Panel Fast (Order Date - 02/03/2025) (Collection Date & Time - 02/03/2025 07:15 AM) Value Reference Range Sodium 141 135-145 - mmol/L Bilirubin Total 0.7 0.0-1.0 - mg/dL Aspartate Amino Transferase 35 5-37 - U/L Alanine Aminotransferase 30 0-40 - U/L Total Protein 6.8 6.5-8.0 - g/dL Albumin Level 4.4 3.5-5.0 - g/dL Alkaline Phosphatase 47 39-117 - U/L Potassium 3.6 3.3-5.1 - mmol/L Chloride 105 96-108 - mmol/L Carbon Dioxide 27 22-29 - mmol/L Anion Gap 13 12-20 - Blood Urea Nitrogen 17 H 9-16 - mg/dL Creatinine 1.08 0.5-1.4 - mg/dL Estimated Glomerular Filt Rate > 60 - Glucose Fasting 96 60-99 - mg/dL Calcium 9.1 8.4-10.2 - mg/dL L ab:Lipid Panel (Order Date - 02/03/2025) (Collection Date & Time - 02/03/2025 07:15 AM) Value Reference Range Triglycerides 68 <150 - mg/dL Cholesterol 141 <200 - mg/dL LDL Cholesterol Calculated 94 <100 - mg/dL HDL Cholesterol 34 L >40 - mg/dL * Examination: G eneral Examination: [...] no masses palpable, prostate normal, stool guaiac negative, abnormal at the opening is a 1in hard nodule.? MALE GENITOURINARY: t anguiano descended bilaterally, no testicular mass, uncircumcised. EXTREMITIES: n o clubbing, cyanosis, or edema. NEUROLOGIC: n onfocal, motor strength normal upper and lower extremities, sensory exam intact. Assessment: * Assessment: 1. A nnual physical exam - Z00.00 (Primary) 2 . V itamin D deficiency - E55.9 3 . T ubular adenoma - D36.9 4 . R ectal abnormality - K62.9 5 . D ysthymia - F34.1 6 . C olon cancer screening - Z12.11 7 . D epression screening - Z13.31 Plan: * Treatment: 2. V itamin D deficiency Notes: decrease to 1000 units per day 3. T ubular adenoma Notes: due for colonoscopy 4. R ectal abnormality Notes: seems most likely a thrombosed hemorrhoid but is due for his colonoscopy so will get that done more quickly Referral To:[facility] Reason:K62. Rectal abnormality needs a urgent appt 5. D ysthymia Notes: stable 6. C olon cancer screening L AB: Occult Blood, Stool, Guaiac (Collection Date & Time - 02/10/2025) N egative Value Reference Range O ccult Blood, Stool, Guaiac Neg Notes: guaiac negative??7.?Depression screening? Notes: negative screen?? * Procedure Codes: 8 2270 TEST FOR BLOOD, FECES * Follow Up: 1 Year * * Sign off status: Completed true * Provider: La Nena Galvan MD Date: 0 02/10/2025 Generated for Kem gutierrez/Rob/eTleroysmitting on: 1 09/01/2024 04:25 PM EST History and Physical Notes * HPI (History of Present Illness) Category Sub-Category Detail Notes Category Not es Symptom(s) patient is a 69 yo male here for annual visit with review of recent labs and follow up of chronic issues Depression Screening PHQ-9 Little inte rest or [...] Questions In the past year have you been worried about losing housing?: No In the past year have you or any family members you live with been unable to get any of the following when it was really needed? Check all that apply:: None Fall Risk History Have you had any falls with injury i n the past year?: No Have you had two or more falls in the year?: No Communication Needs Communication Needs Does [...] clubbing, cyanosi s, or edema MALE GENITOURINARY: testes descended herbert aterally, no testicular mass, uncircumcised RECTAL EXAM: normal tone, no exte rnal hemorrhoids, no masses palpable, prostate normal, stool guaiac negative, abnormal at the opening is a 1in hard nodule ORAL CAVITY: mucosa moist Consultation Request Notes Referral Date Referring Provider Referred Provider Not es 02/10/2025 Dewayne Galvan Robert K62. Recta l abnormality needs a urgent appt
--- OUTSIDE RECORDS SUMMARY | 2025-06-16 04:30 | XMS_ITS ---
Author Organization [facility] Address [address] [place] [address] Care Team Providers Care Registered Nurse Practitioner Name Role Phone Mandy VELAZQUEZ, Dewayne Primary Care Provider Cecil Anderson [phone] REASON FOR VISIT screening,hx polyps,fam hx colon cancer Encounters Encounter Location Date Provider Diagnosis [facility] Outpatient [address] [place] [phone] 06/16/2025 Cecil Cosby Plan Of Treatment No Information Progress Notes * SARAH BETH KCDOB: 4 (69 yo M)Acc No.[id number]:06/16/2025 COLON WITH MAC Patient: SARAH BETH MONAHAN Provider: Patsy Cosby MD :1955 A ge:69 Y S ex:Male Date:06/16/2025 Address:[address] [place] [address] [place], [place] [phone] Pcp:Dewayne Galvan MD Subjective: * Chief Complaints: * S creening,hx polyps,fam hx colon cancer Billing Information: * Procedure Codes: * The named appointment provid er may or may not be the originator of this progress note, and it is not deemed complete until electronically signed by the appointment provider. Sign off status: Pending * Provider: Patsy Cosby MD Date: 08/16/2024 Generated for Kem gutierrez/Rob/eTransmitting on: 09/01/2024 04:25 PM EST
--- OUTSIDE RECORDS SUMMARY | 2025-06-17 06:30 | XMS_ITS ---
Author Organization Dewayne Galvan MD Address [address] [place], [place] [id number] Care Team Providers Care Brick And Blocker Aid Labor Name Role Phone Dewayne Galvan Primary Care [...] kg/m2 06/17/2025 weight is down 4 pounds [facility] Encounters Encounter Location Date Provider Diagnosis Dewayne Galvan MD [address] [place] [address] Drive [address] [place], [place] [phone] 06/17/2025 Dewayne Galvan Inguinal hernia without obstruction or gangrene, recurrence not specified, unspecified laterality K40.90 Assessments Encounter Date Diagnosis (ICD Code) Assessment Notes Treatment Notes Treatment Clinical Notes Section Notes 06/17/2025 Inguinal hernia without obstruction or gangrene, recurrence not specified, unspecified laterality (ICD-10 - K40.90) referral to dr del cid/ Dr. Vaughan is at [facility] [place] Plan Of Treatment Treatment Notes Assessment Notes Inguinal hernia without obst ruction or gangrene, recurrence not specified, unspecified laterality referral to dr del cid/ Dr. Vaughan is at [facility] Referrals Referral Date Details 06/17/2025 06/17/2025, inguinal Hernia, Chance Vaughan Next Appt Details Provider Name:Dewayne Ortiz ier, 02/10/2026 07:45:00 AM, [address] [place] [address], [address], [place], [place], [phone], Provider Name:Dewayne Ortiz ier, 02/17/2026 09:30:00 AM, [address] [place] [address], [address], [place], [place], [phone], Progress Notes * Bart KCDOB: (69 yo M)Acc No.[id number]:06/17/2025 Progress Notes Patient: Bart MONAHAN Provider: La Nena Galvan MD :1955 A ge:69 Y S ex:Male Date:06/17/2025 Address:[address] [place], [place] [id number] Subjective: * Chief Complaints: * L eft [...] Date: 08/17/2024 Generated for Kem gutierrez/Rob/Chino on: 09/01/2024 04:25 PM EST History and Physical Notes * Examination Category Sub-Category Detail Notes Category Not es General Examination GENERAL APPEARANCE: alert, w ell hydrated, in no distress ABDOMEN: left inguinal hernia that is reducible Consultation Request Notes Referral Date Referring Provider Referred Provider Not es 06/17/2025 Dewayne Galvan, Chance [place] rnia
[2025-07-02 08:47] VITALS: BP 144/80; PULSE 83; BMI 29.6
--- NOTE | 2025-07-02 08:47 | MHC.OFFVIS ---
Vital Signs 07/02/25 08:47 Height 5 ft 8 in Weight 195 lb BMI 29.6 BP 144/80 H Blood Pressure Location Rt radial Position Sitting Pulse 83 Intake Visit Reasons: inguinal hernia Intake Note: Patient referred by PCP Dr. Galvan for assessment and treatment of inguinal hernia. Patient c/o: on and off pain and burning sensation. Noticeable bump that can be pushed in. No imaging Corrective And Manual Arts Therapist Required: No Accompanied by: Self / Same As Patient Allergies No Known Allergies Allergy (Unverified 07/02/25 08:53) Medication List - Last Reconciled 07/02/25 by Chance Vaughan MD aspirin 81 mg PO DAILY cholecalciferol (vitamin D3) (Vitamin D3) 50 mcg PO DAILY HPI Comments Details: Patient reports a several week history of burning pain and then subsequent mass in his left inguinal region. He denies any obstructive symptoms. He reports he is able to ?push it back in? in his sent here for consideration of possible left inguinal hernia. He denies any history of abdominal or inguinal surgery in the past. 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 [facility] Medical History Vitamin D deficiency Bilateral tinnitus Bursitis of left shoulder Neurofibromatosis Dysthymia Tubular adenoma Lumbar disc disease No pertinent past medical history Surgical History Hx of excision of mass Hx of foot surgery H/O colonoscopy Social History Patient Tobacco Use Status: Never used Tobacco Review of Systems Const All systems reviewed & are unremarkable except as noted in HPI and below Physical Exam Vital Signs: Last Vital Signs Pulse 83 07/02/25 08:47 BP 144/80 H 07/02/25 08:47 BMI result Body Mass Index 29.6 Const General: cooperative, healthy appearing, comfortable and no acute distress Orientation/consciousness: oriented to person, oriented to place and oriented to time HEENT Head: Yes normal to inspection, Yes normocephalic and Yes atraumatic Ears: hearing grossly normal bilaterally Eyes General: appearance normal, both eyes and all related structures Pupils: Equal, round and reactive pupils present EOM: EOMs intact bilaterally Neck Neck: Yes normal visual inspection Chest Chest palpation & inspection: normal inspection of the chest Resp Effort & Inspection: normal respiratory effort and able to speak in complete sentences Cardio Rate: regular rate Rhythm: regular rhythm GI Other: Small left inguinal hernia that is essentially a sliding hernia easily reducible when patient is standing upright. No corresponding right inguinal hernia appreciated. Abdomen is soft scaphoid nontender nondistended there are no scars I can not appreciate any evidence of hepatosplenomegaly. Inspection: Yes normal to inspection Back/Spine/Pelvis Cervical Spine: normal cervical lordosis Thoracic/Lumbar Spine: thoracic and lumbar spine normal to inspection Skin General skin exam: no rashes or lesions noted Neuro General: oriented to person, oriented to place and oriented to time Cranial nerves: Yes Equal, round and reactive pupils present Extrem General: Yes normal to inspection Psych Appearance: grossly normal and well kempt Mental Status: mental status grossly normal Speech and movement: Normal speech and movement present Assessment & Plan Assessment & Plan (1) Left inguinal hernia: Code(s): K40.90 - Unilateral inguinal hernia, without obstruction or gangrene, not specified as recurrent Category: Medical Plan I told the patient his presentation was consistent with a reducible left inguinal hernia. Reviewed options for management which include conservative and operative intervention. We reviewed the fact that the hernia was not going to fix itself and with time it will most likely become larger and more problematic. We reviewed surgical options as well. I described to him the nature of a laparoscopic possible open left inguinal hernia repair with mesh. I reviewed with him in detail the risks that are involved with such an endeavor. These include but are not limited to bleeding, infection, damage to surrounding structures, damage to the cord structures resulting in testicular compromise, chronic pain, hernia recurrence and unsightly abdominal wall scarring were all reviewed with him in detail. He told me he understood. He told me he accepted the risks he described as inherent dissection undertaken and lastly indicated that despite the risks he still wished to proceed with intervention in the form of laparoscopic left possible bilateral (if one is discovered on the right at the time of surgery) inguinal hernia repair. Coding Level of Care Code New Pt Level 3 (94916) Diagnoses Left inguinal hernia K40.90 Time Spent (min) 30 Comment Time spent was direct patient contact time as well as record review.
--- OUTSIDE RECORDS SUMMARY | 2025-07-02 16:26 | XMS_ITS | Patient Health Record ---
Author Organization [facility] Address [address] [place] [id number] Care Team Providers Care Exceptional Student Education Aide Name Role Phone Dewayne Galvan MD Primary Care Provider Cecil Anderson Unavailable [phone] Allergies No Known Allergies Reason For Referral No Information Medications Medication SIG (Take, Route, Frequency, Duration) Notes Start Date End Date Status Aspirin 81 81 MG Tablet Delayed Release 1 tablet Orally Once a day; Duration: 30 day(s) 03/05/2025 Active Vitamin D 50 MCG (1999) Tablet 1 tablet Orally Once a day; Duration: 30 day(s) 03/05/2025 Active Immunizations Vaccine Route Administration Date Status Comme nts Influenza Unknown 03/05/2025 Refused Social History Tobacco Use: Social History Observation Description Date Details (start date - stop date) Never Smoker NA - NA Social History Drug/Alcohol: Social Info Question Answer Notes AUDIT-C (Standard) Did you have a drink containing alcohol in the past year? Yes How often did you have a drink containing alcohol in the past year? Daily or almost daily (4 points) How many drinks did you have on a typical day when you were drinking in the past year? 1 or 2 drinks (0 point) How often did you have six or more drinks on one occasion in the past year? Never (0 point) Points 4 Interpretation Positive Tobacco Use: Social Info Question Answer Notes Tobacco Use/Smoking Patient is a nonsmoker Additional Details Category Social Info Options Details Miscellaneous: Marital status: Single Occupation: Retired Section Notes: Nonsmoker; no sig. alcohol Nonsmoker; no sig. alcohol Problems Problem Type SNOMED Code ICD Code Onset Dates Problem Status W/U Status Risk Notes Problem Screening for malignant neoplasm of colon (629870440) Encounter for screening for malignant neoplasm of colon (Z12.11) Active confirmed Problem Long-term current use of antiplatelet drug (772221069993255) care home (current) use of aspirin (Z79.82) Active confirmed Problem Preprocedural examination (796499590833761) Preprocedural examination (Z01.818) Active confirmed Problem Family History of Cancer of Colon (Situation) (446717086) Family history of colon cancer (Z80.0) Active confirmed Problem Family history of malignant neoplasm of gastrointestinal tract (640308178) Family history of colon cancer in father (Z80.0) Active confirmed Problem History of adenomatous polyp of colon (193403199) History of adenomatous polyp of colon (Z86.0101) Active confirmed Vital Signs Temperature 97.5 degrees Fahrenheit 03/05/2025 Blood pressure diastolic 01 mm Hg 03/05/2025 Height 68 in 03/05/2025 Blood pressure systolic 001 mm Hg 03/05/2025 Weight 204.4 lbs 03/05/2025 BMI 31.08 kg/m2 03/05/2025 Procedures Procedure Date Ordered Date Performed Result Body Sit e COLONOSCOPY 03/05/2025 N/A Encounters Encounter Location Date Provider Diagnosis [facility] [place] [address] [place] [phone] 06/16/2025 Cecil Cosby [facility] [address] [facility] [address] [place] [address] 03/05/2025 Cecil Cosby History of adenomato us polyp of colon Z86.0101 ; Preprocedural examination Z01.818 ; Colon cancer screening Z12.11 ; Family history of colon cancer in father Z80.0 and care home (current) use of aspirin Z79.82 Assessments Encounter [...] keep you advised of his progress. 03/05/2025 rat exterminator (current) use of aspirin (ICD-10 - Z79.82) [...] Test Test Name Order Date COLONOSCOPY 07/16/2019 Insurance Providers Payer Name Payer Address Payer Phone Subscriber Number Group Number Insured Name Patient Relationship to Insured Coverage Start Date Coverage End Date [facility] [address] [place] [phone] [id number] BART KC Self - patient is the insured 4 Medical (General) History Medical History History ICD Code Denies [place],DM,CVA,Lung disease,renal dise ase He had a neg. screening colo noscopy in October [address] [facility] by Dr. Ramirez Negative screening colonoscopy in 09/2019 except for a small tubular adenoma Surgical History Surgery Date(Month/Year) Ingrown toenails as child Cyst on lip removed as child
--- OUTSIDE RECORDS SUMMARY | 2025-07-02 16:26 | XMS_ITS | Patient Health Record ---
Author Organization Dewayne Galvan MD Address [address] [place], [place] [id number] Care Team Providers Care Crematorium Operator Name Role Phone Dewayne Galvan Primary Care Provider Allergies No Known Allergies Results Component Value Reference Range Notes Complete Blood Count Auto Di ff Reviewed date:02/03/2025 12:36:45 PM Interpretation: Performing Lab:[facility], [address] [place] [phone] Notes/Report: White Blood Count 7.0 4.8-10.8 X10*3/uL [...] NRBC Abs Auto 0.000 0.0-0.012 X10*3/uL Comprehensive [place]. Panel Fa st Reviewed date:02/03/2025 12:37:46 PM Interpretation: Performing Lab:[facility], [address] [place] [phone] Notes/Report: Sodium 141 135-145 mmol/L Potassium 3.6 [...] Panel Reviewed date:02/03/2025 12:36:53 PM Interpretation: Performing Lab:[facility], [address] [place] [phone] Notes/Report: Triglycerides 68 <150 mg/dL Desirable Triglyceride: [...] (Free>4and<10) Reviewed date:02/03/2025 12:36:25 PM Interpretation: Performing Lab:[facility], [address] [place] [phone] Notes/Report: PSA,Total (Free>4and<10) 0.45 0.00-4.00 ng/mL A [...] Total Reviewed date:02/03/2025 12:37:20 PM Interpretation: Performing Lab:[facility], [address] [place] [phone] Notes/Report: Vitamin D 25-OH Total 61.5 >30 [...] t Reviewed date:02/04/2025 05:30:34 PM Interpretation: Performing Lab:[facility], [address] [place] [phone] Notes/Report: [id number] Urine, Clean Catch Color Urine Yellow Appearance Urine Clear PH 7.0 5.0-9.0 Glucose Urine UA Negative Negative mg/dL Urine Blood Negative Negative Specific [place] - Urine 1.015 1.005-1.025 Urine Protein Negative [...] Referral Priority Routine Referral Appointment Date 03/05/2025 Reason inguinal Hernia Diagnosis 1 Inguinal hernia [...] Referral Priority Routine Referral Appointment Date 07/02/2025 Medications Medication SIG (Take, Route, Frequency, Duration) [...] W/U Status Risk Notes Problem Tubular adenoma (808094333) Tubular adenoma (D36.9) Active confirmed Problem 16265206 Vitamin D defici ency (E55.9) Active confirmed Problem 320376353 Bursitis of left shoulder (M75.52) Active confirmed Problem 903859690 Lumbar disc dise ase (M51.9) Active confirmed Problem 92948730 Dysthymia (F34.1) Active confirmed Problem 4855904203365 Bilateral tinnit us (H93.13) Active confirmed Problem 17683386 Neurofibromatosi s (Q85.00) Active confirmed Vital Signs Blood pressure diastolic 78 mm Hg 06/17/2025 warner ght is down 4 pounds since 02-10-25 Height 66.5 in 06/17/2025 weight is down 4 pounds since 02-10-25 Blood pressure systolic 118 mm Hg 06/17/2025 weig ht is down 4 pounds since 02-10-25 Weight 199 lbs 06/17/2025 weight is down 4 pounds since 02-10-25 BMI 31.63 kg/m2 06/17/2025 weight is down 4 pounds since 02-10-25 Encounters Encounter Location Date Provider Diagnosis Dewayne Galvan MD [address] [place] [address] Drive [address] [place] [id number] 02/03/2025 Dewayne Galvan Blood tests for routine general physical examination Z00.00 and Vitamin D deficiency E55.9 Dewayne Galvan MD [address] [place] [address] Drive [address] [place] [id number] 02/10/2025 Dewayne Galvan Vitamin D deficiency E55.9 ; Annual physical exam Z00.00 ; Tubular adenoma D36.9 ; Rectal abnormality K62.9 ; Dysthymia F34.1 ; Colon cancer screening Z12.11 and Depression screening Z13.31 Dewayne Galvan MD [address] [place] [address] [address] [place] [id number] 06/17/2025 Dewayne Galvan Inguinal hernia without obstruction [...] Z00.00) labs reviewed and discussed with patent 06/17/2025 Inguinal hernia without obstruction or gangrene, recurrence not specified, unspecified laterality (ICD-10 - K40.90) referral to dr del cid/ Dr. Vaughan is at [facility] Surgeons 02/03/2025 Vitamin D deficiency (ICD-10 - E55.9) [...] Details Provider Name:Dewayne kidd, 02/10/2026 07:45:00 AM, [address] [place] [address], [address], [place], [phone], Provider Name:Dewayne Ortiz ier, 02/17/2026 09:30:00 AM, [address] [place] [address], [address], [place], [place], [phone], Insurance Providers Payer Name Payer Address Payer Phone Subscriber Number Group Number Insured Name Patient Relationship to Insured Coverage Start Date Coverage End Date [employer] [facility] [address] [place] [phone] [id number] Bart Maldonado Self - patient is the insured Medical (General) History Medical History History ICD Code 09/23/[address] Sandra Cosby - repeat 5 years tubular adenoma. colonoscopy 06/16/25 repeat 5y-Harjeet
== END 2025-07-02 09:15 | disposition home or self-care (01) ==
LOC: HO.HGS 08:46
PROVIDERS: PCP Internal Medicine; Visit Provider Surgery
DX: K40.90 Unilateral inguinal hernia, without obstruction or gangrene, not specified as recurrent (principal)
CPT/HCPCS: 99203

== ENCOUNTER → 2025-07-02 08:46 | Outpatient (BNVA) | payer MEDICARE, SELFPAY | PROVIDERS: PCP Internal Medicine; Visit Provider Surgery | DX: K40.90 Unilateral inguinal hernia, without obstruction or gangrene, not specified as recurrent (principal) | CPT/HCPCS: 99202 ==

== ENCOUNTER 2025-07-21 07:45 | Day surgery (SDC) | payer MEDICARE, SELFPAY ==
--- OUTSIDE RECORDS SUMMARY | 2024-02-01 02:45 | XMS_ITS ---
Author Organization Dewayne Galvan MD Address [address] [place], [place] [phone] Care Team Providers Care Personal Insurance Advisor Name Role Phone Dewayne Galvan Primary Care Provider Results Component Value Reference Range Notes Complete Blood Count Auto Di ff Reviewed date:02/01/2024 05:21:57 PM Interpretation: Performing Lab:[facility], [address] [place] [phone] Notes/Report: White Blood Count 6.3 4.8-10.8 X10*3/uL [...] Microscopic Reviewed date:02/01/2024 05:14:04 PM Interpretation: Performing Lab:[facility], [address] [place] [phone] Notes/Report: Color Urine Yellow Appearance Urine Clear PH 8.5 5.0-9.0 Glucose Urine UA Negative Negative mg/dL Urine Blood Negative Negative Specific [place] - Urine 1.015 1.005-1.025 Urine Protein Negative Neg-Trace mg/dL Urine Ketones Negative Negative mg/dL Nitrite Urine Negative Negative Leukocyte Esterase Urine Negative Negative RBC Urine 0-2 0-2 /HPF WBC Urine 0-5 0-5 /HPF Squamous Epithelial Cell Urine 0-2 0-2 /HPF Bacteria Urine None Seen None Seen Hyaline Casts Urine 0-2 0-2 /LPF Comprehensive [place]. Panel Fa Reviewed date:02/01/2024 05:07:02 PM Interpretation: Performing Lab:[facility], [address] [place] [phone] Notes/Report: Sodium 141 135-145 mmol/L Potassium 3.8 3.3-5.1 mmol/L Chloride 105 96-108 mmol/L Carbon Dioxide 30 22-29 mmol/L Anion Gap 10 12-20 Blood Urea Nitrogen 17 9-16 mg/dL Creatinine 0.85 0.5-1.4 mg/dL Estimated Glomerular Filt Rate > 60 NOTE: For -Austrian individuals, multiply the result by 1.210. Chronic [...] Panel Reviewed date:02/01/2024 05:06:40 PM Interpretation: Performing Lab:[facility], [address] [place] [phone] Notes/Report: Triglycerides 65 <150 mg/dL Desirable Triglyceride: [...] (Free>4and<10) Reviewed date:02/01/2024 05:12:19 PM Interpretation: Performing Lab:[facility], [address] [place] [phone] Notes/Report: PSA,Total (Free>4and<10) 0.46 0.00-4.00 ng/mL A [...] Location Date Provider Diagnosis Dewayne Galvan MD [address] [place] [address] [place] [phone] 02/01/2024 Dewayne Galvan Blood tests for routine general physical examination Z00.00 Assessments Encounter Date Diagnosis (ICD Code) Assessment Notes Treatment Notes Treatment Clinical Notes Section Notes 02/01/2024 Blood tests for routine general physical examination (ICD-10 - Z00.00) Plan Of Treatment Next Appt Details Provider Name:Dewayne kidd, 02/10/2026 07:45:00 AM, [address] [place] [address], Suite [facility], [place], [place], [phone], Provider Name:Dewayne kidd, 02/17/2026 09:30:00 AM, [address] [place] [address], [place] [address], [place], [place], [phone], Progress Notes * ALCONGBart STEVENDOB: (69 yo M)Acc No.[id number]:02/01/2024 Progress Note Patient: Bart MONAHAN Provider: La Nena Galvan MD :1955 A ge:68 Y S ex:Male Date:02/01/2024 Address:[address] [place], [place] [phone] Subjective: * Chief Complaints: * 1 . [...] 0 02/01/2024 Generated for Kem gutierrez/Rob/eTransmitting on: 09/03/2024 07:56 AM EST
--- OUTSIDE RECORDS SUMMARY | 2024-02-08 04:30 | XMS_ITS ---
Author Organization Dewayne Galvan MD Address [address] [place], [place] [phone] Care Team Providers Care Butt Welder Name Role Phone Dewayne Galvan Primary Care Provider Allergies No Known Allergies Results Component Value Reference Range Notes Occult Blood, Stool, Guaiac Reviewed date:02/08/2024 01:22:56 PM Interpretation:Negative Performing Lab: Notes/Report: Negative Occult Blood, Stool, Guaiac Neg Vitamin D 25-OH Total Reviewed date:02/09/2024 12:23:16 PM Interpretation: Performing Lab:[facility], [address] [place] [phone] Notes/Report: Vitamin D 25-OH Total 37.9 >30 [...] Problem Status W/U Status Risk Notes Problem [id number] Bilateral tinnitus (H93.13) Active confirmed Problem 86053270 Vitamin D deficiency (E55.9) Active confirmed Vital Signs Blood pressure systolic 112 mm Hg 02/08/20 24 Blood pressure diastolic 70 mm Hg 024 Height 66.5 in 02/08/2024 Weight 198 lbs 02/08/2024 BMI 31.48 kg/m2 02/08/2024 weight is down 3 pounds [facility] 02-06-23 Encounters Encounter Location Date Provider Diagnosis Dewayne Galvan MD 10 [facility] [address] [place], [place] [phone] 02/08/2024 Dewayne Galvan Bilateral tinnitus H93.13 ; [...] 07:45:00 AM, [address], [address], [place], [place], [phone], Provider Name:Dewayne Ortiz ier, 02/17/2026 09:30:00 AM, [address], [address], [place], [place], [phone], Progress Notes * Bart KCDOB: (68 yo M)Acc No.[id number]:02/08/2024 Progress Notes Patient: Britney Pam garciater Provider: La Nena Galvan MD :1955 A ge:68 Y S ex:Male Date:02/08/2024 Address:[address] [place], [place] [phone] Subjective: * Chief Complaints: * A NNUAL [...] mg/dL Urine Blood Negative Negative - Specific [place] - Urine 1.015 1.005-1.025 - Urine Protein Negative Neg-Trace - mg/dL Urine Ketones Negative Negative - mg/dL Nitrite Urine Negative Negative - Leukocyte Esterase Urine Negative Negative - WBC Urine 0-5 0-5 - /HPF Squamous Epithelial Cell Urine 0-2 0-2 - /HP F Bacteria Urine None Seen None Seen - Hyaline Casts Urine 0-2 0-2 - /LPF L ab:Comprehensive [place]. Panel Fast (Order Date - 02/01/2024) (Collection [...] screen.?? * Procedure Codes: 3 6415 VENIPUNCT, ROUTINE*71141 TEST FOR BLOOD, FECES * Preventive Medicine: Counseling: C are goal follow-up plan: C ounseling for abnormal BMI provided?Yes, A gisselle Normal BMI Follow-up G iving encouragement to exercise. * Follow Up: 1 Year * * Sign off status: Completed true * Provider: La Nena Galvan MD Date: 0 02/08/2024 Generated for Kem gutierrez/Rob/[place] on: 1 09/03/2024 07:56 AM EST History and Physical Notes * HPI [...]
--- OUTSIDE RECORDS SUMMARY | 2025-02-03 02:15 | XMS_ITS ---
Author Organization Dewayne Galvan MD Address [address] [place], [place] [phone] Care Team Providers Care Sole Ruffer Name Role Phone Dewayne Galvan Primary Care Provider [phone] Results Component Value Reference Range Notes Complete Blood Count Auto Di ff Reviewed date:02/03/2025 12:36:45 PM Interpretation: Performing Lab:[facility], [address] [place] [phone] Notes/Report: White Blood Count 7.0 4.8-10.8 X10*3/uL [...] NRBC Abs Auto 0.000 0.0-0.012 X10*3/uL Comprehensive [place]. Panel Fa st Reviewed date:02/03/2025 12:37:46 PM Interpretation: Performing Lab:[facility], [address] [place] [phone] Notes/Report: Sodium 141 135-145 mmol/L Potassium 3.6 [...] Panel Reviewed date:02/03/2025 12:36:53 PM Interpretation: Performing Lab:[facility], [address] [place] [phone] Notes/Report: Triglycerides 68 <150 mg/dL Desirable Triglyceride: [...] (Free>4and<10) Reviewed date:02/03/2025 12:36:25 PM Interpretation: Performing Lab:[facility], [address] [place] [phone] Notes/Report: PSA,Total (Free>4and<10) 0.45 0.00-4.00 ng/mL A [...] Total Reviewed date:02/03/2025 12:37:20 PM Interpretation: Performing Lab:[facility], [address] [place] [phone] Notes/Report: Vitamin D 25-OH Total 61.5 >30 [...] t Reviewed date:02/04/2025 05:30:34 PM Interpretation: Performing Lab:[facility], [address] [place] [phone] Notes/Report: [id number] 0715 Urine, Clean Catch Color Urine Yellow Appearance Urine Clear PH 7.0 5.0-9.0 Glucose Urine UA Negative Negative mg/dL Urine Blood Negative Negative Specific [place] - Urine 1.015 1.005-1.025 Urine Protein Negative [...] Date Provider Diagnosis Dewayne Galvan MD [address] [place], [place] [phone] 02/03/2025 Dewayne Galvan Blood tests for routine general physical examination Z00.00 and Vitamin D deficiency E55.9 Assessments Encounter Date Diagnosis (ICD Code) Assessment Notes Treatment Notes Treatment Clinical Notes Section Notes 02/03/2025 Blood tests for routine general physical examination (ICD-10 - Z00.00) 02/03/2025 Vitamin D deficiency (ICD-10 - E55.9) Plan Of Treatment Next Appt Details Provider Name:Dewayne kidd, 02/10/2026 07:45:00 AM, [address], [address], [place], [place], [phone], Provider Name:Dewayne Ortiz ier, 02/17/2026 09:30:00 AM, [address], [address], [place], [place], [phone], Progress Notes * Bart KCDOB: 4 (69 yo M)Acc No.[id number]:02/03/2025 Progress Note Patient: Bart MONAHAN Provider: La Nena Galvan MD :1955 A ge:69 Y S ex:Male Date:02/03/2025 Address:[address] [place], [place] [phone] Subjective: * Chief Complaints: * 1 . Yearly fasting labs. * Medical History: Objective: * Vitals: Assessment: * Assessment: 1. B lood tests for routine general physical examination - Z00.00 (Primary) 2 .?Vitamin D deficiency - E55.9 Plan: * Treatment: 2. V itamin D deficiency L AB: Complete Blood Count Auto Diff (Collection Date & Time - 02/03/2025 07:15 AM) L AB: Comprehensive [place]. Panel Fast (Collection Date & Time - [...] 02/03/2025 Generated for Kem gutierrez/Rob/eTleroysmitting on: 1 09/03/2024 07:56 AM EST
--- OUTSIDE RECORDS SUMMARY | 2025-02-10 04:30 | XMS_ITS ---
Author Organization Dewayne Galvan MD Address [address] [place], [place] [phone] Care Team Providers Care Fox Farmer Name Role Phone Dewayne Galvan Primary Care Provider [phone] Allergies No Known Allergies Results Component Value [...] W/U Status Risk Notes Problem Tubular adenoma (081542203) Tubular adenoma (D36.9) Active confirmed Vital Signs Blood pressure systolic 112 mm Hg 02/11/20 25 Blood pressure diastolic 80 mm Hg 025 Height 66.5 in 02/10/2025 Weight 203 lbs 02/10/2025 BMI 32.27 kg/m2 02/10/2025 weight is up 5 pounds since 02-08-24 Encounters Encounter Location Date Provider Diagnosis Dewayne Galvan MD [address] [place] [address] [place] [phone] 02/10/2025 Dewayne Galvan Vitamin D deficiency E55.9 [...] 07:45:00 AM, [address], [address], [place], [place], [phone], Provider Name:Dewayne Ortiz ier, 02/17/2026 09:30:00 AM, [address], [address], [place], [place], [phone], Progress Notes * Bart KCDOB: (69 yo M)Acc No.[id number]:02/10/2025 Progress Notes Patient: Bart MONAHAN Provider: La Nena Galvan MD :1955 A ge:69 Y S ex:Male Date:02/10/2025 Address:[address] [place], [place] [phone] Subjective: * Chief Complaints: * A nnual [...] Auto 0.000 0.0-0.012 - X10*3/uL L ab:Comprehensive [place]. Panel Fast (Order Date - 02/03/2025) (Collection [...] 02/10/2025 Generated for Kem gutierrez/Rob/eTleroysmitting on: 1 09/03/2024 07:55 AM EST History and Physical Notes * [...]
--- OUTSIDE RECORDS SUMMARY | 2025-06-16 04:30 | XMS_ITS ---
Author Organization [facility] Address [address] [place] [address] Care Team Providers Care Bridge Ironworker Name Role Phone Mandy VELAZQUEZ, Dewayne Primary Care Provider Cecil Anderson [phone] REASON FOR VISIT screening,hx polyps,fam hx colon cancer Encounters Encounter Location Date Provider Diagnosis [facility] Outpatient [address] [place] [phone] 06/16/2025 Cecil Cosby Plan Of Treatment No Information Progress Notes * SARAH BETH KCDOB: 4 (69 yo M)Acc No.[id number]:06/16/2025 COLON WITH MAC Patient: SARAH BETH MONAHAN Provider: Patsy Cosby MD :1955 A ge:69 Y S ex:Male Date:06/16/2025 Address:[address] [place], [place] [phone] Pcp:Dewayne Galvan MD Subjective: * Chief Complaints: [...] Date: 08/16/2024 Generated for Kem gutierrez/Rob/eTransmitting on: 09/03/2024 07:55 AM EST
--- OUTSIDE RECORDS SUMMARY | 2025-06-17 06:30 | XMS_ITS ---
Author Organization Dewayne Galvan MD Address [address] [place], [place] [phone] Care Team Providers Care Plexiglas Former Name Role Phone Dewayne Galvan Primary Care Provider [phone] Allergies No Known Allergies Reason For Referral [...] kg/m2 06/17/2025 weight is down 4 pounds [facility] 6-30-25 Encounters Encounter Location Date Provider Diagnosis Dewayne Galvan MD [address] [place] [address] Drive [address] [place], [place] [phone] 06/17/2025 Dewayne Galvan Inguinal hernia without obstruction or gangrene, recurrence not specified, unspecified laterality K40.90 Assessments Encounter Date Diagnosis (ICD Code) Assessment Notes Treatment Notes Treatment Clinical Notes Section Notes 06/17/2025 Inguinal hernia without obstruction or gangrene, recurrence not specified, unspecified laterality (ICD-10 - K40.90) referral to dr del cid/ Dr. Vaugh[place] [facility] [place] Of [place] Treatment Notes Assessment Notes Inguinal hernia without obst ruction or gangrene, recurrence not specified, unspecified laterality referral to dr del cid/ Dr. Vaughan is at [facility] Referrals Referral Date Details 06/17/2025 06/17/2025, inguinal Hernia, Chance Vaughan Next Appt Details Provider Name:Dewayne Ortiz ier, 02/10/2026 07:45:00 AM, [address] [place] [address], [address], [place], [place], [phone], Provider Name:Dewayne Ortiz ier, 02/17/2026 09:30:00 AM, [address] [place] [address], [address], [place], [place], [phone], Progress Notes * Bart KCDOB: (69 yo M)Acc No.[id number]:06/17/2025 Progress Notes Patient: Bart MONAHAN Provider: La Nena Galvan MD :1955 A ge:69 Y S ex:Male Date:06/17/2025 Address:[address] [place], [place] [phone] Subjective: * Chief Complaints: * L eft [...] Date: 08/17/2024 Generated for Kem gutierrez/Rob/Chino on: 09/03/2024 07:55 AM EST History and Physical Notes * Examination Category Sub-Category Detail Notes Category Not es General Examination GENERAL APPEARANCE: alert, w ell hydrated, in no distress ABDOMEN: left inguinal hernia that is reducible Consultation Request Notes Referral Date Referring Provider Referred Provider Not es 06/17/2025 Dewayne Galvan, Chance [place] rnia
--- OUTSIDE RECORDS SUMMARY | 2025-07-04 07:56 | XMS_ITS | Patient Health Record ---
Author Organization [facility] Address [address] [place] [phone] Care Team Providers Care Detective Bowling Alley Name Role Phone Dewayne Galvan MD Primary Care Provider Cecil Anderson Unavailable [phone] Allergies No Known Allergies Reason For Referral [...] Problem Screening for malignant neoplasm of colon (464564588) Encounter for screening for malignant neoplasm of colon (Z12.11) Active confirmed Problem Long-term current use of antiplatelet drug (869651223295145) jail (current) use of aspirin (Z79.82) Active confirmed Problem Preprocedural examination (084316974840401) Preprocedural examination (Z01.818) Active confirmed Problem Family History of Cancer of Colon (Situation) (629423086) Family history of colon cancer (Z80.0) Active confirmed Problem Family history of malignant neoplasm of gastrointestinal tract (092259830) Family history of colon cancer in father (Z80.0) Active confirmed Problem History of adenomatous polyp of colon (451893273) History of adenomatous polyp of colon (Z86.0101) Active confirmed Vital Signs Temperature 97.5 degrees Fahrenheit 03/05/2025 Blood pressure diastolic 01 mm Hg 03/05/2025 Height 68 in 03/05/2025 Blood pressure systolic 001 mm Hg 03/05/2025 Weight 204.4 lbs 03/05/2025 BMI 31.08 kg/m2 03/05/2025 Procedures Procedure Date Ordered Date Performed Result Body Sit e COLONOSCOPY 03/05/2025 N/A Encounters Encounter Location Date Provider Diagnosis [facility] Outpatient [address] [place] [id number] 06/16/2025 Cecil Cosby [facility] [address] [facility] [address] [place] [address] 03/05/2025 Cecil Cosby History of adenomato us polyp of colon Z86.0101 ; Preprocedural examination Z01.818 ; Colon cancer screening Z12.11 ; Family history of colon cancer in father Z80.0 and jail (current) use of aspirin Z79.82 Assessments Encounter [...] keep you advised of his progress. 03/05/2025 termite inspector (current) use of aspirin (ICD-10 - Z79.82) [...] Insured Coverage Start Date Coverage End Date [facility] [address] [place] [phone] [id number] BART KC Self - patient is the insured 4 Medical (General) History Medical History History ICD Code Denies [place],DM,CVA,Lung disease,renal dise ase He had a neg. screening colo noscopy in October 2010 at [facility] by Dr. Ramirez Negative screening colonoscopy in 09/2019 except for a small tubular adenoma Surgical History Surgery Date(Month/Year) Ingrown toenails as child Cyst on lip removed as child
--- OUTSIDE RECORDS SUMMARY | 2025-07-04 07:56 | XMS_ITS | Patient Health Record ---
Author Organization Dewayne Galvan MD Address [address] [place], [place] [id number] Care Team Providers Care Cheese Cutter Name Role Phone Dewayne Galvan Primary Care Provider Allergies No Known Allergies Results Component Value Reference Range Notes Complete Blood Count Auto Di ff Reviewed date:02/03/2025 12:36:45 PM Interpretation: Performing Lab:[facility], [address] [place] [phone] Notes/Report: White Blood Count 7.0 4.8-10.8 X10*3/uL [...] NRBC Abs Auto 0.000 0.0-0.012 X10*3/uL Comprehensive [place]. Panel Fa st Reviewed date:02/03/2025 12:37:46 PM Interpretation: Performing Lab:[facility], [address] [place] [phone] Notes/Report: Sodium 141 135-145 mmol/L Potassium 3.6 [...] Panel Reviewed date:02/03/2025 12:36:53 PM Interpretation: Performing Lab:[facility], [address] [place] [phone] Notes/Report: Triglycerides 68 <150 mg/dL Desirable Triglyceride: [...] (Free>4and<10) Reviewed date:02/03/2025 12:36:25 PM Interpretation: Performing Lab:[facility], [address] [place] [phone] Notes/Report: PSA,Total (Free>4and<10) 0.45 0.00-4.00 ng/mL A [...] Total Reviewed date:02/03/2025 12:37:20 PM Interpretation: Performing Lab:[facility], [address] [place] [phone] Notes/Report: Vitamin D 25-OH Total 61.5 >30 [...] t Reviewed date:02/04/2025 05:30:34 PM Interpretation: Performing Lab:[facility], [address] [place] [phone] Notes/Report: [id number] Urine, Clean Catch Color Urine Yellow Appearance Urine Clear PH 7.0 5.0-9.0 Glucose Urine UA Negative Negative mg/dL Urine Blood Negative Negative Specific [place] - Urine 1.015 1.005-1.025 Urine Protein Negative [...] W/U Status Risk Notes Problem Tubular adenoma (585760848) Tubular adenoma (D36.9) Active confirmed Problem 46612956 Vitamin D defici ency (E55.9) Active confirmed Problem 059717941 Bursitis of left shoulder (M75.52) Active confirmed Problem 763417873 Lumbar disc dise ase (M51.9) Active confirmed Problem 60673454 Dysthymia (F34.1) Active confirmed Problem 3520661541180 Bilateral tinnit us (H93.13) Active confirmed Problem 01989976 Neurofibromatosi s (Q85.00) Active confirmed Vital Signs [...] Location Date Provider Diagnosis Dewayne Galvan MD [address] [place] [address] Drive [address] [place] [id number] 02/03/2025 Dewayne Galvan Blood tests for routine general physical examination Z00.00 and Vitamin D deficiency E55.9 Dewayne Galvan MD [address] [place] [address] Drive [address] [place] [id number] 02/10/2025 Dewayne Galvan Vitamin D deficiency E55.9 ; Annual physical exam Z00.00 ; Tubular adenoma D36.9 ; Rectal abnormality K62.9 ; Dysthymia F34.1 ; Colon cancer screening Z12.11 and Depression screening Z13.31 Dewayne Galvan MD [address] [place] [address] Drive [address] [place] [id number] 06/17/2025 Dewayne Galvan Inguinal hernia without obstruction [...] dr del cid/ Dr. Vaughan is at [facility] Surgeons 02/03/2025 Vitamin D deficiency (ICD-10 - [...] Provider Name:Dewayne kidd, 02/10/2026 07:45:00 AM, [address] [place] [address], [address], [place], [phone], Provider Name:Dewayne Ortiz ier, 02/17/2026 09:30:00 AM, [address] [place] [address], [address], [place], [place], [phone], Insurance Providers Payer Name Payer Address Payer Phone Subscriber Number Group Number Insured Name Patient Relationship to Insured Coverage Start Date Coverage End Date [employer] PLAN [employer] [address] [place] [phone] [id number] Bart Maldonado Self - patient is the insured Medical (General) History Medical History History ICD Code 09/23/[address] Sandra Cosby - repeat 5 years tubular adenoma. colonoscopy 06/16/25 repeat 5y-Harjeet
[2025-07-08 09:54] VITALS: BMI 29.6
--- NOTE | 2025-07-16 09:46 | HO.ANESPROP2 ---
Documented by User: Eda Abraham NP 07/16/25 09:48 HPI - Anesthesia Eval Consult details Narrative: 69yo M for LEFT Repair Hernia Inguinal Reducible,possible BILATERAL Repair Inguinal Hernia Repair with mesh s/p colo 06/2025 with [facility] Active Problems Active Problems: All Active Problems Left inguinal hernia (Acute) Past Medical History Medical History (Updated 07/08/25 @ 09:58 by Linda Alejandro, RN) Vitamin D deficiency Bilateral tinnitus Bursitis of left shoulder Neurofibromatosis Dysthymia Tubular adenoma Lumbar disc disease Family History Family history of problems with anesthesia: No Surgical History Surgical History (Updated 07/08/25 @ 09:59 by Linda Alejandro, [place]) Hx of excision of mass Hx of foot surgery H/O colonoscopy (06/16/25) History of Problems with Anesthesia: No Social History Social History (Updated 07/08/25 @ 10:01 by Linda Alejandro, [place]) Are you a primary managed care provider to a significant other at home: No Do you presently have visiting nurse or other home services: No Patient Tobacco Use Status: Never used Tobacco Meds Allergies Allergy/AdvReac Type Severity Reaction Status Date / Time No Known Allergies Allergy Unverified 07/02/25 08:53 Home Medications ?Medication ?Instructions ?Recorded ?Confirmed ?Last Taken ?Type aspirin 81 mg tablet,delayed 81 mg PO DAILY 06/12/25 07/08/25 Unknown History release Exam Height,Weight and Vital Signs: Height 5 ft 8 in Weight 88.451 kg Pertinent Lab Results Pertinent Lab Results: Laboratory Tests 02/03/25 07:15 WBC 7.0 Hgb 16.7 Hct 50.0 Plt Count 184 Sodium 141 Potassium 3.6 Chloride 105 Carbon Dioxide 27 BUN 17 H Creatinine 1.08 Assessment and Plan Assessment Anesthesia Assessment: Chart Reviewed Final Anesthetic Review Family History of Problems with Anesthesia: No History of Problems with Anesthesia: No Documented by User: Dedra Kohli MD 07/21/25 08:14 [facility] Past Medical History Medical History (Updated 07/08/25 @ 09:58 by Linda Alejandro, [place]) Vitamin D deficiency Bilateral tinnitus Bursitis of left shoulder Neurofibromatosis Dysthymia Tubular adenoma Lumbar disc disease Surgical History Surgical History (Updated 07/08/25 @ 09:59 by Linda Alejandro, RN) Hx of excision of mass Hx of foot surgery H/O colonoscopy (06/16/25) Social History Social History (Updated 07/08/25 @ 10:01 by Linda Alejandro, [place]) Are you a primary managed care provider to a significant other at home: No Do you presently have visiting nurse or other home services: No Patient Tobacco Use Status: Never used Tobacco Meds Allergies Allergy/AdvReac Type Severity Reaction Status Date / Time No Known Allergies Allergy Unverified 07/02/25 08:53 Home Medications ?Medication ?Instructions ?Recorded ?Confirmed ?Last Taken ?Type aspirin 81 mg tablet,delayed 81 mg PO DAILY 06/12/25 07/08/25 Unknown History release Exam Airway Mallampati Class: II (implant right lateral) TM Dist: >3cm Neck ROM: Full Heart: rrr Lungs: cta Assessment and Plan Assessment Anesthesia Assessment: Anesthesia Plan Discussed Final Anesthetic Review NPO: Yes ASA Class: II Final Preanesthetic Review: No Changes in Pt Med Stat, Meds/Allgs Chart Reviewed and Consent Obtained/Reviewed Patient Risk: Intermediate Procedure Risk: Low Anesthetic Plan Anesthetic Plan: GA Disposition: Standard PACU
[2025-07-21 08:10] VITALS: BP 127/85; PULSE 76; RESP 16; TEMP 36.4; O2SAT 97
[2025-07-21] MEDS: Lactated Ringers 1,000 ML 100 ML IVCONT (08:21)
--- NOTE | 2025-07-21 08:21 | P.CONAN_ITS ---
[facility] Active Problems Active Problems: All Active Problems (Updated 07/08/25 @ 09:58 by Linda Alejandro, [place]) Left inguinal hernia (Acute) Past Medical History Medical History (Updated 07/08/25 @ 09:58 by Linda Alejandro, [place]) Vitamin D deficiency Bilateral tinnitus Bursitis of left shoulder Neurofibromatosis Dysthymia Tubular adenoma Lumbar disc disease Family History Family history of problems with anesthesia: No Surgical History Surgical History (Updated 07/08/25 @ 09:59 by Linda Alejandro, RN) Hx of excision of mass Hx of foot surgery H/O colonoscopy (06/16/25) History of Problems with Anesthesia: No Social History Social History (Updated 07/08/25 @ 10:01 by Linda Alejandro RN) Are you a primary care team coordinator scheduler to a significant other at home: No Do you presently have visiting nurse or other home services: No Patient Tobacco Use Status: Never used Tobacco Meds Allergies Allergy/AdvReac Type Severity Reaction Status Date / Time No Known Allergies Allergy Unverified 07/02/25 08:53 Active Medications: Current Medications Fentanyl (Fentanyl Citrate/Pf 100 Mcg/2 Ml Vial) 50 mcg IVPUSH Q5M PRN PRN Reason: Pain, Moderate to Severe (Pain Scale 4-10) Stop: 07/21/25 14:12 Fentanyl (Fentanyl Citrate/Pf 100 Mcg/2 Ml Vial) 50 mcg IVPUSH Q5M PRN PRN Reason: Pain, Moderate to Severe (Pain Scale 4-10) Stop: 07/21/25 14:20 Haloperidol Lactate (Haloperidol Lactate 5 Mg/Ml Vial) 1 mg IVPUSH ONCE PRN PRN Reason: intractable nausea Stop: 07/21/25 14:20 Lactated Ringer's (Lr) 1,000 mls @ 100 mls/hr IVCONT .Q10H NELLI Cefazolin Sodium/Dextrose (Ancef) 2 gm in 50 mls @ 100 mls/hr IV PREOP ONE Stop: 07/21/25 08:27 Naloxone HCl (Naloxone Hcl 0.4 Mg/Ml Vial) 0.04 mg IVPUSH Q5M PRN PRN Reason: Excessive sedation or RR < 8 Naloxone HCl (Naloxone Hcl 0.4 Mg/Ml Vial) 0.04 mg IVPUSH Q5M PRN PRN Reason: Excessive sedation or RR < 8 Ondansetron HCl (Ondansetron Hcl 4 Mg/2 Ml Vial) 4 mg IVPUSH ONCE PRN PRN Reason: Nausea and Vomiting Stop: 07/21/25 14:12 Home Medications ?Medication ?Instructions ?Recorded ?Confirmed ?Last Taken ?Type aspirin 81 mg tablet,delayed 81 mg PO DAILY 06/12/25 1 09/07/24 Unknown History release Exam Height,Weight and Vital Signs: Height 5 ft 8 in Weight 88.451 kg Last Vital Signs Temp 97.5 F 07/21/25 08:10 Pulse 76 07/21/25 08:10 Resp 16 07/21/25 08:10 BP 127/85 07/21/25 08:10 Pulse Ox 97 07/21/25 08:10 O2 Del Method Room Air 07/21/25 08:10 Airway Mallampati Class: II (implant top front tooth, multiple caps) TM Dist: >3cm Neck ROM: Full Heart: rrr Lungs: cta Assessment and Plan Assessment Anesthesia Assessment: Anesthesia Plan Discussed and Chart Reviewed Final Anesthetic Review Family History of Problems with Anesthesia: No History of Problems with Anesthesia: No NPO: Yes ASA Class: III Final Preanesthetic Review: No Changes in Pt Med Stat, Meds/Allgs Chart Reviewed and Consent Obtained/Reviewed Patient Risk: Intermediate Procedure Risk: Low Anesthetic Plan Anesthetic Plan: GA Disposition: Standard PACU
--- NOTE | 2025-07-21 10:25 | W.PM.OPN ---
Operative Note Operative Note Date of Service: 07/21/25 Narrative: Preoperative diagnosis: Left inguinal hernia Postoperative diagnosis: Left inguinal hernia Findings: left indirect inguinal scrotal hernia involving sigmoid colon. No evidence of hernia on the right side Procedure performed laparoscopic transabdominal preperitoneal left inguinal hernia repair with mesh Surgeon: Chance Vaughan MD Assostamt: TERRELL Delgadillo Anesthesia: GETA Complications: none The patient was brought to the operating room and placed supine on the operating table. His arms and legs were cushioned appropriately and Venodyne boots were cycled. General endotracheal anesthesia was initiated the Anesthesiology Service the patient's abdomen was then prepped and draped in standard sterile fashion. After this approximately 20 cc of 0.25% Marcaine with epinephrine were infused in the skin and soft tissue of the infraumbilical region of the patient's abdomen. Through this locally anesthetized site stab incision following Atiya's lines was created and then dissected down to the umbilical root which is grasped and elevated exposing the median raphe. A stab incision was then created in the median raphe and spread with a Schnidt clamp allowing access to the abdominal cavity. A 12 mm laparoscopic trocar port was then placed and CO2 gas was insufflated to create a pneumoperitoneum. Once the intra-abdominal process restart proximally 1 5 mmHg the intra-abdominal contents were surveyed. There was no evidence of injury from placement of either the local anesthetic or the laparoscopic trocar port. It was evident that the patient had a left indirect inguinal scrotal hernia involving the sigmoid colon. No hernia was seen on the right side. Two 5 mm ports were placed via separate stab incisions in the right and left flank regions of the patient's abdomen. The patient was then placed in Trendelenburg position. A peritoneal flap was then developed using hook cautery starting at the level of the anterior superior iliac spine on the left-hand side and finishing around just to the right of midline and just inferior of the umbilicus. The lateral pocket was created with combination of blunt and sharp dissection taking care to avoid the retroperitoneal nervous structures. This pocket was dissected down all the way until most of the psoas muscle body could be observed. The medial pocket was also created completely exposing Silverio's ligament and the pubic tubercle. The bladder remain posterior to the flap. The central pocket was then also created. The flap and sac were taken down with careful dissection of the spermatic cord structures which were densely adherent to abundant amounts of scar tissue to the flap and the sac. The cord structures were preserved and their entirety. The vas and vasculature were identified and preserved throughout their length. Once the flap and sac had been dissected down to a level at least 10 cm posterior to the incompetent internal ring we passed an endo close needle under direct visualization through the internal ring. We then selected a 4 in x [address] mesh with the echo positioning system. It was dipped in antibiotic irrigation rolled up and delivered to the patient's abdominal cavity according to the wood products manufacturer's specifications. The Endoclose needle was then used to grasp the elevating string and the mesh was proceeded up to the anterior abdominal/ inguinal wall. The long axis was ordered in the transverse orientation. The medial inferior edge of the mesh was tacked to Silverio's ligament starting in the midline and progressing over to the patient's left-hand side without impinging upon the vascular structures. A small femoral hernia defect was encountered. Some laxity in the superficial inguinal ring was also observed. The lateral aspect of the mesh was then tacked up to the anterior abdominal wall taking care to stay above the iliopubic tract. Once the tacking was completed the mesh was observed to be in excellent position with no folding wrinkling or kinking or gaps are openings. The positioning scaffolding was then discontinued without difficulty. Final laparoscopic surveillance revealed no evidence of hemorrhage or visceral injury. The flap was held up so it covered the mesh in its entirety. The patient was then placed in a reverse Trendelenburg position and the pneumoperitoneum released under direct visualization of the laparoscope. The trocar ports were then removed without difficulty. The fascia underlying the infraumbilical port was then closed with a 0 Polysorb on a UR 6 needle. All the skin incisions were then closed with 4-0 absorbable suture. Steri-Strips and sterile occlusive Dressings were applied. The patient tolerated procedure well, was recovered from anesthesia and taken to the recovery room in good condition. It should be noted that the sponge instrument needle counts were correct in the case in the right eye with engine assembly supervisor performed all aspects of the case. Also discussed the details case the patient afterward.
[2025-07-21 10:35] VITALS: BP 125/79; PULSE 69; RESP 14; TEMP 36.6; O2SAT 98
[2025-07-21 10:40] VITALS: BP 119/71; PULSE 72; RESP 15; O2SAT 92
[2025-07-21 10:45] VITALS: BP 116/74; PULSE 71; RESP 16; O2SAT 95
[2025-07-21 10:50] VITALS: BP 116/72; PULSE 70; RESP 15; O2SAT 94
[2025-07-21 11:05] VITALS: BP 123/84; PULSE 64; RESP 12; TEMP 36.4; O2SAT 96
== END 2025-07-21 12:20 | disposition home or self-care (01) ==
PROVIDERS: PCP Internal Medicine; Visit Provider Surgery
PROC: (CPT 49650; principal; 2025-07-21 09:50)
DX: K40.90 Unilateral inguinal hernia, without obstruction or gangrene, not specified as recurrent (principal); E55.9 Vitamin D deficiency, unspecified; Q85.00 Neurofibromatosis, unspecified; F34.1 Dysthymic disorder; M51.369 Other intervertebral disc degeneration, lumbar region without mention of lumbar back pain or lower extremity pain; Z79.82 Long term (current) use of aspirin; Z79.899 Other long term (current) drug therapy; Z98.890 Other specified postprocedural states
CPT/HCPCS: 49650; A4649; C1052; C1781; C1889; J0131; J0690; J1100; J1885; J2003; J2405; J2704; J3010; J3374

== ENCOUNTER → 2025-07-21 07:45 | Outpatient (BNV) | payer MEDICARE, SELFPAY | PROVIDERS: PCP Internal Medicine; Visit Provider Surgery | DX: K40.90 Unilateral inguinal hernia, without obstruction or gangrene, not specified as recurrent (principal) | CPT/HCPCS: 49650 ==

== ENCOUNTER 2025-08-05 12:04 | Outpatient (AMB) | payer MEDICARE, SELFPAY ==
--- OUTSIDE RECORDS SUMMARY | 2024-02-08 04:30 | XMS_ITS ---
Author Organization Dewayne Galvan MD Address [address] [place], [place] [id number] Care Team Providers Care Park Activities Coordinator Name Role Phone Dewayne Galvan Primary Care Provider [phone] Allergies No Known Allergies Results Component Value Reference Range Notes Occult Blood, Stool, Guaiac Reviewed date:02/08/2024 01:22:56 PM Interpretation:Negative Performing Lab: Notes/Report: Negative Occult Blood, Stool, Guaiac Neg Vitamin D 25-OH Total Reviewed date:02/09/2024 12:23:16 PM Interpretation: Performing Lab:[facility], [address] [place] [phone] Notes/Report: Vitamin D 25-OH Total 37.9 >30 [...] Problem Status W/U Status Risk Notes Problem [id number] Bilateral tinnitus (H93.13) Active confirmed Problem 05967451 Vitamin D deficiency (E55.9) Active confirmed Vital Signs Blood pressure systolic 112 mm Hg 02/08/20 24 Blood pressure diastolic 70 mm Hg 024 Height 66.5 in 02/08/2024 Weight 198 lbs 02/08/2024 BMI 31.48 kg/m2 02/08/2024 weight is down 3 pounds [facility] Encounters Encounter Location Date Provider Diagnosis Dewayne Galvan MD [address] [facility] [address] [place], [place] [id number] 02/08/2024 Dewayne Galvan Bilateral tinnitus H93.13 ; [...] 07:45:00 AM, [address], [address], [place], [place], [phone], Provider Name:Dewayne Ortiz ier, 02/17/2026 09:30:00 AM, [address], [address], [place], [place], [phone], Progress Notes * Bart KCDOB: (68 yo M)Acc No.[id number]:02/08/2024 Progress Notes Patient: Britney Pam garciater Provider: La Nena Galvan MD :1955 A ge:68 Y S ex:Male Date:02/08/2024 Address:[address] [place], [place] [id number] Subjective: * Chief Complaints: * A NNUAL [...] mg/dL Urine Blood Negative Negative - Specific [place] - Urine 1.015 1.005-1.025 - Urine Protein Negative Neg-Trace - mg/dL Urine Ketones Negative Negative - mg/dL Nitrite Urine Negative Negative - Leukocyte Esterase Urine Negative Negative - WBC Urine 0-5 0-5 - /HPF Squamous Epithelial Cell Urine 0-2 0-2 - /HP F Bacteria Urine None Seen None Seen - Hyaline Casts Urine 0-2 0-2 - /LPF L ab:Comprehensive [place]. Panel Fast (Order Date - 02/01/2024) (Collection [...] screen.?? * Procedure Codes: 3 6415 VENIPUNCT, ROUTINE*62769 TEST FOR BLOOD, FECES * Preventive Medicine: Counseling: C are goal follow-up plan: C ounseling for abnormal BMI provided?Yes, A gisselle Normal BMI Follow-up G iving encouragement to exercise. * Follow Up: 1 Year * * Sign off status: Completed true * Provider: La Nena Galvan MD Date: 0 02/08/2024 Generated for Kem gutierrez/Rob/[place] on: 1 10/06/2024 01:16 PM EST History and Physical Notes * [...]
--- OUTSIDE RECORDS SUMMARY | 2025-02-03 02:15 | XMS_ITS ---
Author Organization Dewayne Galvan MD Address [address] [place], [place] [phone] Care Team Providers Care Insert Cutter Name Role Phone Dewayne Galvan Primary Care Provider Results Component Value Reference Range Notes Complete Blood Count Auto Di ff Reviewed date:02/03/2025 12:36:45 PM Interpretation: Performing Lab:[facility], [address] [place] [phone] Notes/Report: White Blood Count 7.0 4.8-10.8 X10*3/uL Red Blood Count 5.76 4.60-5.80 X10*6/uL Hemoglobin 16.7 14.0-18.0 g/dl Hematocrit 50.0 42.0-52.0 % Mean Corpuscular Volume 86.8 80.0-98.0 fL Mean Corpuscular Hemoglobin 29.0 27.0-33.0 pg Mean Corpuscular HGB Conc 33.4 31.0-36.0 g/dl Red Cell Distribution Width 12.8 11.0-16.0 % Platelet Count 184 160-400 X10*3/uL Mean Platelet Volume 11.1 9.4-12.4 fL Neutrophils Percent Auto 52.0 45-73 % Imm Gran Pct Auto 0.3 0.0-0.4 % Lymphocytes Percent Auto 34.0 20-40 % Monocytes Percent Auto 9.2 2-11 % Eosinophils Percent Auto 3.9 0-4 % Basophils Percent Auto 0.6 0-2 % NRBC Pct Auto 0.0 0.0-0.2 /100WBC Neutrophils Absolute Auto 3.6 2.0-8.3 x10*3/u L Imm Gran Abs Auto 0.02 0.00-0.03 X10*3/uL Lymphocytes Absolute Auto 2.4 1.2-4.9 X10*3/u L Monocytes Absolute Auto 0.6 0.1-1.2 X10*3/uL Eosinophils Absolute Auto 0.3 0.0-0.4 X10*3/u L Basophils Absolute Auto 0.0 0.0-0.2 X10*3/uL NRBC Abs Auto 0.000 0.0-0.012 X10*3/uL Comprehensive [place]. Panel Fa st Reviewed date:02/03/2025 12:37:46 PM Interpretation: Performing Lab:[facility], [address] [place] [phone] Notes/Report: Sodium 141 135-145 mmol/L Potassium 3.6 3.3-5.1 mmol/L Chloride 105 96-108 mmol/L Carbon Dioxide 27 22-29 mmol/L Anion Gap 13 12-20 Blood Urea Nitrogen 17 9-16 mg/dL Creatinine 1.08 0.5-1.4 mg/dL Estimated Glomerular Filt Rate > 60 Chronic Kidney Disease: Estimated GFR < 60 mL/min/1.73m2 Severe Kidney Disease: Estimated GFR < 15 mL/min/1.73m2 Glucose Fasting 96 60-99 mg/dL Calcium 9.1 8.4-10.2 mg/dL Bilirubin Total 0.7 0.0-1.0 mg/dL Aspartate Amino Transferase 35 5-37 U/L Alanine Aminotransferase 30 0-40 U/L Total Protein 6.8 6.5-8.0 g/dL Albumin Level 4.4 3.5-5.0 g/dL Alkaline Phosphatase 47 39-117 U/L Lipid Panel Reviewed date:02/03/2025 12:36:53 PM Interpretation: Performing Lab:[facility], [address] [place] [phone] Notes/Report: Triglycerides 68 <150 mg/dL Desirable Triglyceride: less than 150 mg/dL Borderline High Triglyceride 150-199 mg/dL High Triglyceride: 200-499 mg/dL Very High Triglyceride: greater than or equal to 5OO mg/dL Cholesterol 141 <200 mg/dL Desirable Cholesterol: less than 200 mg/dL Borderline High Cholesterol: 200-239 mg/dL High Cholesterol: greater than 239 mg/dL LDL Cholesterol Calculated 94 <100 mg/dL Desirable LDL: less than 100 mg/dL Near Optimal/Above Optimal LDL: 110-129 mg/dL Borderline High LDL: 130-159 mg/dL High LDL: 160-189 mg/dL Very High LDL: greater than or equal to 190 mg/dL HDL Cholesterol 34 >40 mg/dL Desirable HDL: greater than 40 mg/dL Note: This HDL assay may give artificially low results in patients with liver disease. PSA,Total (Free>4and<10) Reviewed date:02/03/2025 12:36:25 PM Interpretation: Performing Lab:[facility], [address] [place] [phone] Notes/Report: PSA,Total (Free>4and<10) 0.45 0.00-4.00 ng/mL A Free PSA was not [...] Walter Alinity i Chemiluminescent Microparticle Immunoassay (CMIA) Vitamin D 25-OH Total Reviewed date:02/03/2025 12:37:20 PM Interpretation: Performing Lab:[facility], [address] [place] [phone] Notes/Report: Vitamin D 25-OH Total 61.5 >30 ng/mL Health Based Reference Values* < 20 ng/mL Deficient 20-30 ng/mL Insufficient > 30 ng/mL Sufficient *Bryce CHAPMAN. N Engl J Med. 2007;357:266-280 There is no well-established upper level of normal vitamin D levels. Some laboratories use 50 ng/mL as an upper limit of normal. However, toxicity is patient-dependent and may occur at any level. Careful correlation with the patient's presentation is necessary and, if there is concern for vitamin D toxicity, treatment should be considered irrespective of the serum level. Care must be taken in interpreting Vitamin [...] confirmed with another method such as LC-MS/MS. UA ClnCatch+Micro w/rflx Cul t Reviewed date:02/04/2025 05:30:34 PM Interpretation: Performing Lab:[facility], [address] [place] [phone] Notes/Report: [id number] 0715 Urine, Clean Catch Color Urine Yellow Appearance Urine Clear PH 7.0 5.0-9.0 Glucose Urine UA Negative Negative mg/dL Urine Blood Negative Negative Specific [place] - Urine 1.015 1.005-1.025 Urine Protein Negative Neg-Trace mg/dL Urine Ketones Negative Negative mg/dL Nitrite Urine Negative Negative Leukocyte Esterase Urine Negative Negative RBC Urine 0-2 0-2 /HPF WBC Urine 0-5 0-5 /HPF Squamous Epithelial Cell Urine 0-2 0-2 /HPF Bacteria Urine None Seen None Seen Hyaline Casts Urine 0-2 0-2 /LPF REASON FOR VISIT yearly fasting labs Encounters Encounter Location Date Provider Diagnosis Dewayne Galvan MD [address] [place], [place] [phone] 02/03/2025 Dewayne Galvan Blood tests for routine general physical examination Z00.00 and Vitamin D deficiency E55.9 Assessments Encounter Date Diagnosis (ICD Code) Assessment Notes Treatment Notes Treatment Clinical Notes Section Notes 02/03/2025 Blood tests for routine general physical examination (ICD-10 - Z00.00) 02/03/2025 Vitamin D deficiency (ICD-10 - E55.9) Plan Of Treatment Next Appt Details Provider Name:Dewayne kidd, 02/10/2026 07:45:00 AM, [address], [address], [place], [place], [phone], Provider Name:Dewayne Ortiz ier, 02/17/2026 09:30:00 AM, [address], [address], [place], [place], [phone], Progress Notes * Bart KCDOB: 4 (69 yo M)Acc No.[id number]:02/03/2025 Progress Note Patient: Bart MONAHAN Provider: La Nena Galvan MD :1955 A ge:69 Y S ex:Male Date:02/03/2025 Address:[address] [place], [place] [phone] Subjective: * Chief Complaints: * 1 . Yearly fasting labs. * Medical History: Objective: * Vitals: Assessment: * Assessment: 1. B lood tests for routine general physical examination - Z00.00 (Primary) 2 .?Vitamin D deficiency - E55.9 Plan: * Treatment: 2. V itamin D deficiency L AB: Complete Blood Count Auto Diff (Collection Date & Time - 02/03/2025 07:15 AM) L AB: Comprehensive [place]. Panel Fast (Collection Date & Time - 02/03/2025 07:15 AM) L AB: Lipid Panel (Collection Date & Time - 02/03/2025 07:15 AM) L AB: PSA,Total (Free>4and<10) (Collection Date & Time - 02/03/2025 07:15 AM) L AB: Vitamin D 25-OH Total (Collection Date & Time - 02/03/2025 07:15 AM) L AB: UA ClnCatch+Micro w/rflx Cult (Collection Date & Time - 02/03/2025 07:15 AM) * Procedure Codes: 3 6415 VENIPUNCT, ROUTINE* * * The named appointment provid er may or may not be the originator of this progress note, and it is not deemed complete until electronically signed by the appointment provider. Sign off status: Pending * Provider: La Nena Galvan MD Date: 0 02/03/2025 Generated for Kem gutierrez/Rob/eTleroysmitting on: 1 10/06/2024 01:16 PM EST
--- OUTSIDE RECORDS SUMMARY | 2025-02-10 04:30 | XMS_ITS ---
Author Organization Dewayne Galvan MD Address [address] [place], [place] [phone] Care Team Providers Care Voice Network Engineer Name Role Phone Dewayne Galvan Primary Care [...] W/U Status Risk Notes Problem Tubular adenoma (962385542) Tubular adenoma (D36.9) Active confirmed Vital Signs Blood pressure systolic 112 mm Hg 02/11/20 25 Blood pressure diastolic 80 mm Hg 025 Height 66.5 in 02/10/2025 Weight 203 lbs 02/10/2025 BMI 32.27 kg/m2 02/10/2025 weight is up 5 pounds since 02-08-24 Encounters Encounter Location Date Provider Diagnosis Dewayne Galvan MD [address] [place] [address] [place] [phone] 02/10/2025 Dewayne Galvan Vitamin D deficiency E55.9 [...] 07:45:00 AM, [address], [address], [place], [place], [phone], Provider Name:Dewayne Ortiz ier, 02/17/2026 09:30:00 AM, [address], [address], [place], [place], [phone], Progress Notes * Bart KCDOB: (69 yo M)Acc No.[id number]:02/10/2025 Progress Notes Patient: Bart MONAHAN Provider: La Nena Galvan MD :1955 A ge:69 Y S ex:Male Date:02/10/2025 Address:[address] [place], [place] [phone] Subjective: * Chief Complaints: * A nnual [...] Auto 0.000 0.0-0.012 - X10*3/uL L ab:Comprehensive [place]. Panel Fast (Order Date - 02/03/2025) (Collection [...] 02/10/2025 Generated for Kem gutierrez/Rob/eTleroysmitting on: 1 10/06/2024 01:16 PM EST History [...]
--- OUTSIDE RECORDS SUMMARY | 2025-06-16 04:30 | XMS_ITS ---
Author Organization [facility] Address [address] [place] [address] Care Team Providers Care Technical Buyer Name Role Phone Mandy VELAZQUEZ, Dewayne Primary Care Provider Cecil Anderson [phone] REASON FOR VISIT screening,hx polyps,fam hx colon cancer Encounters Encounter Location Date Provider Diagnosis [facility] [address] [place] [phone] 06/16/2025 Cecil Cosby Plan Of Treatment No Information Progress Notes * SARAH BETH KCDOB: 4 (69 yo M)Acc No.[id number]:06/16/2025 COLON WITH MAC Patient: SARAH BETH MONAHAN Provider: Patsy Cosby MD :1955 A ge:69 Y S ex:Male Date:06/16/2025 Address:[address] [place], [place] [phone] Pcp:Dewayne Galvan MD Subjective: * Chief Complaints: [...] Date: 08/16/2024 Generated for Kem gutierrez/Rob/eTransmitting on: 10/06/2024 01:16 PM EST
--- OUTSIDE RECORDS SUMMARY | 2025-06-17 06:30 | XMS_ITS ---
Author Organization Dewayne Galvan MD Address [address] [place], [place] [id number] Care Team Providers Care Hopper Filler Name Role Phone Dewayne Galvan Primary Care Provider Allergies No Known Allergies Reason For Referral Reason inguinal Hernia Diagnosis 1 Inguinal hernia with out obstruction or gangrene, recurrence not specified, unspecified laterality (K40.90) Referral Organization Dewayne Galvan MD Referring Provider First Name Dewayne Referring Provider Last Name Mandy Referring Provider Speciality Internal M edicine Referred Provider Chance Vaughan Referred Provider Specialty General Surg shoshana General Notes Betty Myles 1 08/17/2024 03:42:05 PM >patient is aware of appt Referral Priority Routine Referral Appointment Date 07/02/2025 REASON FOR VISIT left groin mass x 2 weeks Medications Medication SIG (Take, Route, Frequency, Duration) Notes Start Date End Date Status Aspirin 81 81 MG 1 tablet Orally Once a day Active Vitamin D 25 MCG (1000 UT) 1 tablet Orally Once a day for 30 day(s) Not-Taking Vital Signs Blood pressure systolic 118 mm Hg 06/17/20 25 Blood pressure diastolic 78 mm Hg 025 Height 66.5 in 06/17/2025 Weight 199 lbs 06/17/2025 BMI 31.63 kg/m2 06/17/2025 weight is down 4 pounds [facility] 6-30-25 Encounters Encounter Location Date Provider Diagnosis Dewayne Galvan MD [address] [place] [address] Drive [address] [place], [place] [phone] 06/17/2025 Dewayne Galvan Inguinal hernia without obstruction or gangrene, recurrence not specified, unspecified laterality K40.90 Assessments Encounter Date Diagnosis (ICD Code) Assessment Notes Treatment Notes Treatment Clinical Notes Section Notes 06/17/2025 Inguinal hernia without obstruction or gangrene, recurrence not specified, unspecified laterality (ICD-10 - K40.90) referral to dr del cid/ [place]. [place] [facility] [place] Of Treatment Treatment Notes Assessment Notes Inguinal hernia without obst ruction or gangrene, recurrence not specified, unspecified laterality referral to dr de lcid/ Dr. Vaughan is at [facility] Referrals Referral Date Details 06/17/2025 06/17/2025, inguinal Hernia, Chance Vaughan Next Appt Details Provider Name:Dewayne Ortiz ier, 02/10/2026 07:45:00 AM, [address] [place] [address], [address], [place], [place], [phone], Provider Name:Dewayne Ortiz ier, 02/17/2026 09:30:00 AM, [address] [place] [address], [address], [place], [place], [phone], Progress Notes * Bart KCDOB: (69 yo M)Acc No.[id number]:06/17/2025 Progress Notes Patient: Bart MONAHAN Provider: La Nena Galvan MD :1955 A ge:69 Y S ex:Male Date:06/17/2025 Address:[address] [place], [place] [phone] Subjective: * Chief Complaints: * L eft groin mass x 2 weeks * HPI: S ymptom(s): patient is a 69 yo male had burning and swellin in left groin. looks swollen/ has gotten smaller. tiny amt of pain and burning. just minimal has been lifting ladder and raking leaves. * ROS: G eneral/Constitutional: Denies C hills. D enies F atigue. D enies F ever. D enies H eadache. E NT: Denies S ore throat. R espiratory: Denies C ough. D enies S hortness of breath at rest. D enies S hortness of breath with exertion. G astrointestinal: Denies D iarrhea. D enies N ausea. M en Only: Admits D ifficulty initiating stream. A dmits L ump in groin, c /o left groin mass. * Medical History: * Surgical History: * Hospitalization/Major Diagno stic Procedure: * Medications: T akingAspirin 81 81 MG Tablet Delayed Release 1 tablet Orally Once a day Taking Aspirin 81 81 MG Tablet Delayed Release 1 tablet Orally Once a day Not-Taking/PRNVitamin D 25 MCG (1000 UT) Tablet 1 tablet Orally Once a day Medication List reviewed and reconciled with the patientNot-Taking/PRN Vitamin D 25 MCG (1000 UT) Tablet 1 tablet Orally Once a day Medication List reviewed and reconciled with the patient * Allergies: N .K.D.A.yes[Allergies Verified] Objective: * Vitals: H t: 66.5, Wt: 199, BMI:31.63, BP:118/78, Wt-k.27. weight is down 4 pounds since 02-10-25. * Examination: G eneral Examination: GENERAL APPEARANCE: a lert, well hydrated, in no distress.? ABDOMEN: l eft inguinal hernia that is reducible. ? Assessment: * Assessment: 1. I nguinal hernia without obstruction or gangrene, recurrence not specified, unspecified laterality - K40.90 (Primary) Plan: * Treatment: * Procedure Codes: * * Sign off status: Completed true * Provider: La Nena Galvan MD Date: 08/17/2024 Generated for Kem gutierrez/Rob/Chino on: 10/06/2024 01:15 PM EST History and Physical Notes * Examination Category Sub-Category Detail Notes Category Not es General Examination GENERAL APPEARANCE: alert, w ell hydrated, in no distress ABDOMEN: left inguinal hernia that is reducible Consultation Request Notes Referral Date Referring Provider Referred Provider Not es 06/17/2025 Dewayne Galvan, Chance [place] rnia
[2025-08-05 12:07] VITALS: BMI 29.6
--- NOTE | 2025-08-05 12:07 | MHC.OFFVIS ---
Vital Signs 08/05/25 12:07 Height 5 ft 8 in Weight 195 lb BMI 29.6 Intake Visit Reasons: s/p Left inguinal hernia poss bilat w/mesh Intake Note: Patient here s/p laparoscopic trans abdominal preperitoneal left inguinal hernia repair with mesh. Patient c/o: some tenderness w/ certain movements. Reports bandage was left alone. Never took Oxy. Taking Tylenol as needed. Voiding and BM wnl. Surgery: (JK) 07-21-2025 Barber Required: No Accompanied by: Self / Same As Patient Allergies No Known Allergies Allergy (Unverified 08/05/25 12:08) HPI HPI s/p Left inguinal hernia poss bilat w/mesh: Details: He is doing well overall he does have some pain but this is overall improving. Reports his appetite is good has been taking good oral intake. Bowel functions are normal, not straining. He does get some pain with certain movements. But is tolerating light ambulation around the house. Denies fevers or chills. Reports some swelling in the left groin. Denies any drainage from incision port sites. Denies fevers [facility] Medical History (Updated 08/05/25 @ 08:15 by AQUILES Umanzor) Vitamin D deficiency Bilateral tinnitus Bursitis of left shoulder Neurofibromatosis Dysthymia Tubular adenoma Lumbar disc disease Surgical History (Updated 08/05/25 @ 08:15 by AQUILES Umanzor) S/P left inguinal hernia repair (07/21/25) Hx of excision of mass Hx of foot surgery H/O colonoscopy (06/16/25) Social History (Updated 07/08/25 @ 10:01 by Linda Alejandro RN) Are you a primary medicare insurance specialist to a significant other at home: No Do you presently have visiting nurse or other home services: No Patient Tobacco Use Status: Never used Tobacco Review of Systems Const All systems reviewed & are unremarkable except as noted in HPI and below Physical Exam Vital Signs: BMI result Body Mass Index 29.6 Const General: comfortable and no acute distress Orientation/consciousness: patient oriented x3 Resp Effort & Inspection: normal respiratory effort and able to speak in complete sentences GI Other: Incision sites clean dry and intact. Mild swelling over the left inguinal canal, minimally tender Palpation (GI): Soft to palpation and Tenderness to palpation present (GI) (Mild tenderness in left groin) Neuro General: patient oriented x3 Assessment & Plan Assessment & Plan (1) Left inguinal hernia: Comment: laparoscopic transabdominal preperitoneal left inguinal hernia repair with mesh Chance Alexandre Code(s): K40.90 - Unilateral inguinal hernia, without obstruction or gangrene, not specified as recurrent Category: Medical Plan 69-year-old male s/p laparoscopic left inguinal hernia repair with mesh with Dr. Vaughan on 07/21/2025 returning to the office for 1st postop visit. Overall he is doing well, feels like he is improving. He does still get some pain with certain movements, I reassured him that this is appropriate and should improve over the next few weeks. He is tolerating light ambulation. Reports good oral intake, good bowel function. Does report some swelling in the left groin. Denies any drainage from incision sites, no pain around the incision sites has left the dressings in place. Dressings were removed incisions are clean dry and intact. No concern for any active infection at this time. There was some mild swelling in the left groin but reassured him again that this is appropriate and should improve, recommend he do warm compresses to this area which may alleviate some of the swelling. Continue with activity restrictions no heavy lifting greater than 15 lb. He will return in about 2 weeks for re-evaluation. He can call sooner with any questions or concerns. Coding Level of Care Code Global (19710) Diagnoses Left inguinal hernia K40.90
--- OUTSIDE RECORDS SUMMARY | 2025-08-05 13:16 | XMS_ITS | Patient Health Record ---
Author Organization Dewayne Galvan MD Address [address] [place], [place] [id number] Care Team Providers Care Special Effects Technician Name Role Phone Dewayne Galvan Primary Care Provider Allergies No Known Allergies Results Component Value Reference Range Notes Complete Blood Count Auto Di ff Reviewed date:02/03/2025 12:36:45 PM Interpretation: Performing Lab:[facility], [address] [place] [phone] Notes/Report: White Blood Count 7.0 4.8-10.8 X10*3/uL [...] NRBC Abs Auto 0.000 0.0-0.012 X10*3/uL Comprehensive [place]. Panel Fa st Reviewed date:02/03/2025 12:37:46 PM Interpretation: Performing Lab:[facility], [address] [place] [phone] Notes/Report: Sodium 141 135-145 mmol/L Potassium 3.6 [...] Panel Reviewed date:02/03/2025 12:36:53 PM Interpretation: Performing Lab:[facility], [address] [place] [phone] Notes/Report: Triglycerides 68 <150 mg/dL Desirable Triglyceride: [...] (Free>4and<10) Reviewed date:02/03/2025 12:36:25 PM Interpretation: Performing Lab:[facility], [address] [place] [phone] Notes/Report: PSA,Total (Free>4and<10) 0.45 0.00-4.00 ng/mL A [...] Total Reviewed date:02/03/2025 12:37:20 PM Interpretation: Performing Lab:[facility], [address] [place] [phone] Notes/Report: Vitamin D 25-OH Total 61.5 >30 [...] t Reviewed date:02/04/2025 05:30:34 PM Interpretation: Performing Lab:[facility], [address] [place] [phone] Notes/Report: [id number] Urine, Clean Catch Color Urine Yellow Appearance Urine Clear PH 7.0 5.0-9.0 Glucose Urine UA Negative Negative mg/dL Urine Blood Negative Negative Specific [place] - Urine 1.015 1.005-1.025 Urine Protein Negative [...] W/U Status Risk Notes Problem Tubular adenoma (240989418) Tubular adenoma (D36.9) Active confirmed Problem 40410680 Vitamin D defici ency (E55.9) Active confirmed Problem 509465991 Bursitis of left shoulder (M75.52) Active confirmed Problem 976372269 Lumbar disc dise ase (M51.9) Active confirmed Problem 75316576 Dysthymia (F34.1) Active confirmed Problem [id number] Bilateral tinnit us (H93.13) Active confirmed Problem 87350431 Neurofibromatosi s (Q85.00) Active confirmed Vital Signs [...] Location Date Provider Diagnosis Dewayne Galvan MD [address] [place] [address] Drive [address] [place] [phone] 02/03/2025 Dewayne Galvan Blood tests for routine general physical examination Z00.00 and Vitamin D deficiency E55.9 Dewayne Galvan MD [address] [place] [address] Drive [address] [place] [id number] 02/10/2025 Dewayne Galvan Vitamin D deficiency E55.9 ; Annual physical exam Z00.00 ; Tubular adenoma D36.9 ; Rectal abnormality K62.9 ; Dysthymia F34.1 ; Colon cancer screening Z12.11 and Depression screening Z13.31 Dewayne Galvan MD [address] [place] [address] Drive [address] [place] [phone] 06/17/2025 Dewayne Galvan Inguinal hernia without obstruction [...] cid/ Dr. Vaughan [place] [facility] 02/03/2025 Vitamin D deficiency (ICD-10 - [...] Details Provider Name:Dewayne kidd, 02/10/2026 07:45:00 AM, [address] [place] [address], [address], [place], [phone], Provider Name:Dewayne Ortiz ier, 02/17/2026 09:30:00 AM, [address] [place] [address], [address], [place], [place], [phone], Insurance Providers Payer Name Payer Address Payer Phone Subscriber Number Group Number Insured Name Patient Relationship to Insured Coverage Start Date Coverage End Date [employer] [facility] [address] [place] [phone] [id number] Bart Maldonado Self - patient is the insured Medical (General) History Medical History History ICD Code 09/23/[address] Sandra Cosby - repeat 5 years tubular adenoma. colonoscopy 06/16/25 repeat 5y-Harjeet
--- OUTSIDE RECORDS SUMMARY | 2025-08-05 13:16 | XMS_ITS | Patient Health Record ---
Author Organization [facility] Address [address] [place] [phone] Care Team Providers Care Tax Technician Name Role Phone Dewayne Galvan MD Primary Care Provider Cecil Anderson Unavailable [phone] Allergies No Known Allergies Reason For Referral No Information Medications Medication SIG (Take, Route, Frequency, Duration) Notes Start Date End Date Status Vitamin D 50 MCG (1999) Tablet 1 tablet Orally Once a day; Duration: 30 day(s) 03/05/2025 Unknown Aspirin 81 81 MG Tablet Delayed Release 1 tablet Orally Once a day; Duration: 30 day(s) 03/05/2025 Unknown Immunizations Vaccine Route Administration Date Status Comme [...] Problem Screening for malignant neoplasm of colon (974563434) Encounter for screening for malignant neoplasm of colon (Z12.11) Active confirmed Problem Long-term current use of antiplatelet drug ([id number]) 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.82) Active confirmed Problem Preprocedural examination (595924965852939) Preprocedural examination (Z01.818) Active confirmed Problem Family History of Cancer of Colon (Situation) (391321006) Family history of colon cancer (Z80.0) Active confirmed Problem Family history of malignant neoplasm of gastrointestinal tract (940771523) Family history of colon cancer in father (Z80.0) Active confirmed Problem History of adenomatous polyp of colon (157087688) History of adenomatous polyp of colon (Z86.0101) Active confirmed Vital Signs Temperature 97.5 degrees Fahrenheit 03/05/2025 Blood pressure diastolic 01 mm Hg 03/05/2025 Height 68 in 03/05/2025 Blood pressure systolic 001 mm Hg 03/05/2025 Weight 204.4 lbs 03/05/2025 BMI 31.08 kg/m2 03/05/2025 Procedures Procedure Date Ordered Date Performed Result Body Sit e COLONOSCOPY 03/05/2025 N/A Encounters Encounter Location Date Provider Diagnosis [facility] [place] Out[place] [address] [place] [id number] 06/16/2025 Cecil Cosby [facility] [address] [place] [phone] 03/05/2025 Cecil Cosby History of adenomato us polyp of colon Z86.0101 ; Preprocedural examination Z01.818 ; Colon cancer screening Z12.11 ; Family history of colon cancer in father Z80.0 and care home (current) use of aspirin Z79.82 [facility] [address] [place] [phone] 03/05/2025 Cecil Cosby Assessments Encounter Date Diagnosis (ICD Code) Assessment [...] keep you advised of his progress. 03/05/2025 extermination supervisor (current) use of aspirin (ICD-10 - Z79.82) [...] Insured Coverage Start Date Coverage End Date [facility] [address] [place] [phone] [id number] BART KC Self - patient is the insured 4 Medical (General) History Medical History History ICD Code Denies [place],DM,CVA,Lung disease,renal dise ase He had a neg. screening colo noscopy in October 2010 at [facility] by Dr. Ramirez Negative screening colonoscopy in 09/2019 except for a small tubular adenoma Surgical History Surgery Date(Month/Year) Ingrown toenails as child Cyst on lip removed as child
== END 2025-08-05 12:44 | disposition home or self-care (01) ==
LOC: HO.HGS 12:05
PROVIDERS: PCP Internal Medicine
DX: K40.90 Unilateral inguinal hernia, without obstruction or gangrene, not specified as recurrent (principal)
CPT/HCPCS: 99024

== ENCOUNTER → 2025-08-05 12:04 | Outpatient (BNVA) | payer MEDICARE, SELFPAY | PROVIDERS: PCP Internal Medicine | DX: Z48.815 Encounter for surgical aftercare following surgery on the digestive system (principal); K40.90 Unilateral inguinal hernia, without obstruction or gangrene, not specified as recurrent | CPT/HCPCS: 99212 ==